=== PATIENT | male | born 1970 | race Caucasian/White ===

== ENCOUNTER 2016-05-21 13:23 | Emergency (ER) | payer OTHER ==
[~2016-05-21] VITALS: Ht 182.9 cm; Wt 79.0 kg
[2016-05-21 13:47] VITALS: TEMP 36.7; Ht 182.9 cm; Wt 79.0 kg
[2016-05-21] MEDS ORDERED: XYLOCAINE 1%/SOD BICARB 20 ML VIAL INFIL ONE (14:03)
--- NOTE | 2016-05-21 14:14 | EMERGENCY ROOM VISIT NOTE ---
ED Visit Note First contact with patient: 13:45 CHIEF COMPLAINT: Left hand laceration HISTORY OF PRESENT ILLNESS: This 45-year-old male patient presents to the emergency department ambulatory after cutting the left palm. The bleeding has stopped. Denies weakness or numbness of the fingers. The patient denies any pain. The patient denies any other injuries. The patient's Tetanus shot is probably up to date but he was unable to verify this. The patient states that he was changing a nail block from his nail gun and pushed the block up but one nail had come out and caused a 4cm laceration to the palm of his left hand. He was seen at urgent care and referred to the emergency department. REVIEW OF SYSTEMS: A 6 system review of systems was completed with positives and pertinent negatives listed in the HPI. ALLERGIES: No known drug allergies MEDICATIONS: None PMH: none SOCIAL HISTORY: The patient is employed and lives locally. PHYSICAL EXAM: Vital Signs: Reviewed Nurse's notes, vital signs stable. GENERAL : This is a 45-year-old male, in no acute distress, well-developed, well- nourished. SKIN: There is a 4 cm long laceration on the palmar aspect of the left hand. The edges gape apart with traction. There is no foreign material in the wound and it looks clean. There is minimal bleeding. No deep structures such as tendons, bones, or nerves are seen in the base of the wound. Normal strength and movement of the fingers. Capillary refill less than 2 seconds. Normal sensation to light and sharp touch. EMERGENCY DEPARTMENT COURSE: I examined the patient. An x-ray of the left hand was obtained and reviewed by radiology and myself. There is no obvious bony abnormality or foreign body. The patient has a laceration to the left hand. He is neurologically intact. He has good strength and range of motion of the hand and all fingers. I did not visualize any obvious tendon involvement on inspection. Using sterile technique the wound was cleaned with Betadine. The area was sterilely draped. 4 ml of 1% buffered lidocaine was used to anesthetize the laceration on the left hand. Once the patient was numb, the wound was copiously irrigated under pressure with 1L sterile saline using the [employer] lavage. The wound was explored and there is no obvious tendon involvement. The laceration was repaired using 8 simple interrupted 5-0 nylon sutures with the wound edges being well approximated. The patient tolerated the procedure well. The bleeding stopped. The area was cleaned with sterile saline and dressed with bacitracin ointment and bandage. The patient was given Td immunization. The patient will be placed on Keflex for 5 days to help prevent infection He was placed in a removable thumb spica splint to help limit movement while he is up and about and particularly at work. He declined a note for work. He should follow up with Dr. Perdomo with any numbness, tingling, weakness, decreased movement of the hand or fingers. Otherwise, he should have the sutures removed in 10-12 days. The patient was discharged home in good condition. Current/Historical Medications Scheduled Cephalexin Monohydrate (Keflex), 500 MG PO TID Allergies Coded Allergies: No Known Allergies (Unverified , 05/21/16) Vital Signs Date Time Temp Pulse Resp B/P Pulse Ox O2 Delivery O2 Flow Rate FiO2 05/21/16 16:09 62 18 128/89 96 Room Air 05/21/16 13:47 36.7 66 16 136/68 100 Room Air Medications Administered Medications (Trade) Dose Ordered Sig/Noam Route Start Time Stop Time Status Last Admin Dose Admin Diphtheria/ Pertussis/Tetanus Vacc (Adacel Inj) 0.5 ml ONCE ONCE IM. 05/21/16 16:00 05/21/16 16:01 DC 05/21/16 16:08 0.5 ML Departure Information Impression Primary Impression: Hand laceration Dispostion Home / Self-Care Condition GOOD Prescriptions Cephalexin Monohydrate (Keflex) 500 Mg Cap 500 MG PO TID for 5 Days, #15 CAP Prov: Angela Bates PA-C 05/21/16 Referrals Fazal Hdez M.D. (PCP) Emil Perdomo MD Patient Instructions ED Laceration All, My [facility] Additional Instructions Keep wound clean and dry. Do not allow any crusting or dried blood to accumulate on sutures. If this occurs, use a 1:1 solution of hydrogen peroxide/ water on a Q-tip to clean the wound. Use an antibiotic ointment for 3-4 days, then let wound dry. Suture removal in 10-12 days. Return sooner for any signs of infection (increasing redness, swelling, drainage). Ice and elevate for swelling and pain. Ibuprofen 600 mg and Tylenol 1000 mg every 6 hrs for pain. No more than 4 g of Tylenol in 24 hours. Keep covered when in sun until sutures removed then SPF 50 or higher for one year. Vitamin E oil if desired two weeks after suture removal for reduction of scar. Keflex as prescribed to help prevent infection Wear the splint when up and about Follow-up with Dr. Perdomo with any severe pain, persistent numbness, decreased strength or range of motion in the fingers or hand Problem Qualifiers Primary Impression: Hand laceration Encounter type: initial encounter Laterality: left Qualified Codes: S61.412A - Laceration without foreign body of left hand, initial encounter
--- NOTE | 2016-05-21 14:32 | DIAGNOSTIC IMAGING REPORT ---
LEFT HAND 3 VIEWS HISTORY: left hand laceration COMPARISON: None. FINDINGS: There is no fracture or dislocation. Soft tissue laceration at the palmar aspect of the hand. No radiopaque foreign bodies. IMPRESSION: No fractures. Soft tissue laceration at the palm. Electronically signed by: Toni Naik M.D. 05/21/2016 2:31 PM Dictated Date/Time: 05/21/2016 2:30 PM
[2016-05-21] MEDS ORDERED: CEPH500C PO (15:48)
[2016-05-21] MEDS ORDERED: DIPHTHERIA/TETANUS/PERTUSSIS 0.5 ML SYR/VIAL IM. ONE (16:00)
[2016-05-21 16:09] VITALS: BP 128/89; PULSE 62; O2SAT 96
== END 2016-05-21 16:10 | disposition home or self-care (01) ==
LOC: C.EDB 13:26 → C.EDD 16:10
DX: S61.412A Laceration without foreign body of left hand, initial encounter (principal); W45.8XXA Other foreign body or object entering through skin, initial encounter; Z23 Encounter for immunization

== ENCOUNTER 2016-05-31 18:20 | Emergency (ER) | payer OTHER ==
[~2016-05-31] VITALS: Ht 182.9 cm; Wt 80.6 kg
[2016-05-31 18:28] VITALS: BP 151/97; PULSE 57; TEMP 36.8; O2SAT 98; Ht 182.9 cm; Wt 80.6 kg
--- NOTE | 2016-05-31 18:42 | EMERGENCY ROOM VISIT NOTE ---
ED Visit Note First contact with patient: 18:33 CHIEF COMPLAINT: Suture removal HISTORY OF PRESENT ILLNESS: This 45-year-old patient returns to the ED today for removal of sutures that were placed 10 days ago. There has been no swelling , redness, or drainage from the wound. The patient feels like the laceration is healing well. REVIEW OF SYSTEMS: A 6 system review of systems was completed with positives and pertinent negatives listed in the HPI. PMH: Unchanged from previous visit. ALLERGIES: None PHYSICAL EXAM: Vital Signs: Reviewed Nurse's notes, vital signs stable. GENERAL : Pleasant male, in no acute distress. SKIN: There is a sutured wound on the left palm with no signs of infection. There is no erythema, swelling, or tenderness. EMERGENCY DEPARTMENT COURSE: The laceration was not fully healed and patient was advised to come back in 4 days for suture removal. There still was some separation of the wound edges. He was advised to keep the area dry and clean and covered while at work. The patient was discharged home in good condition. DIAGNOSIS: Healing laceration and wound recheck DISCHARGE INSTRUCTIONS AND TREATMENT: As below Allergies Coded Allergies: No Known Allergies (Unverified , 05/21/16) Vital Signs Date Time Temp Pulse Resp B/P Pulse Ox O2 Delivery O2 Flow Rate FiO2 05/31/16 18:28 36.8 57 18 151/97 98 Room Air Departure Information Referrals Fazal Hdez M.D. (PCP) Patient Instructions My [facility]
== END 2016-05-31 18:45 | disposition home or self-care (01) ==
LOC: C.EDB 18:21 → C.EDD 18:45
DX: Z48.02 Encounter for removal of sutures (principal)

== ENCOUNTER 2016-06-05 16:45 | Emergency (ER) | payer OTHER ==
[~2016-06-05] VITALS: Ht 182.9 cm; Wt 79.0 kg
[2016-06-05 16:46] VITALS: BP 137/88; PULSE 68; TEMP 36.7; O2SAT 98; Ht 182.9 cm; Wt 79.0 kg
[2016-06-05] MEDS ORDERED: MULT-600 PO (17:10)
--- NOTE | 2016-06-05 17:22 | EMERGENCY ROOM VISIT NOTE ---
ED Visit Note First contact with patient: 16:49 CHIEF COMPLAINT: Suture removal HISTORY OF PRESENT ILLNESS: This 45-year-old male patient returns to the ED today for removal of sutures that were placed 17 days ago. There has been no swelling, redness, or drainage from the wound. There was some dehiscence of the wound after 2 sutures are removed 5 days ago and he was advised to come. REVIEW OF SYSTEMS: A 6 system review of systems was completed with positives and pertinent negatives listed in the HPI. PMH: Unchanged from previous visit. ALLERGIES: No known drug allergies PHYSICAL EXAM: Vital Signs: Reviewed Nurse's notes, vital signs stable. GENERAL : This is a 45-year-old male, in no acute distress. SKIN: There is a sutured wound on the left hand with no signs of infection. There is no erythema, swelling, or tenderness. EMERGENCY DEPARTMENT COURSE: The remaining sutures were removed without any difficulty and there was slight dehiscence of the wound edges closest to the thumb. The skin beneath seems to be healed. The area was cleaned and Steri- Strips were placed after benzoin. The patient should contact orthopedics to schedule a follow-up appointment. He should return with any worsening symptoms. He was placed in a metal splint that included the second and third fingers. The patient had been wearing a splint while at work only. The patient was discharged home in good condition. DIAGNOSIS: Healing laceration and suture removal DISCHARGE INSTRUCTIONS AND TREATMENT: Wear the splint until seen by orthopedics. Leave the Steri-Strips in place. Contact orthopedics first thing in the morning to schedule a follow-up appointment for further evaluation and management. Return with any redness, swelling, warmth, drainage. Current/Historical Medications Scheduled Multiple Vitamins W/ Minerals (Mens Multi Vitamin & Mine), 1 TAB PO DAILY Allergies Coded Allergies: No Known Allergies (Unverified , 05/21/16) Vital Signs Date Time Temp Pulse Resp B/P Pulse Ox O2 Delivery O2 Flow Rate FiO2 06/05/16 16:46 36.7 68 16 137/88 98 Room Air Departure Information Impression Primary Impression: Encounter for removal of sutures Dispostion Home / Self-Care Condition GOOD Referrals Fazal Hdez M.D. (PCP) Emil Perdomo MD Patient Instructions My [facility] Additional Instructions Wear the splint until seen by orthopedics. Leave the Steri-Strips in place. Contact orthopedics first thing in the morning to schedule a follow-up appointment for further evaluation and management. Return with any redness, swelling, warmth, drainage.
== END 2016-06-05 17:15 | disposition home or self-care (01) ==
LOC: C.EDB 16:45 → C.EDD 17:15
DX: Z48.02 Encounter for removal of sutures (principal)

== ENCOUNTER 2017-10-06 07:13 | Emergency (ER) | payer OTHER ==
[~2017-10-06] VITALS: Ht 182.9 cm; Wt 77.1 kg
[~2017-10-06 07:13] MED LIST: MULT-600 PO
[2017-10-06 07:18] VITALS: TEMP 36.4; Ht 182.9 cm; Wt 77.1 kg
[2017-10-06] MEDS ORDERED: KETOROLAC TROMETHAMINE 30 MG/ML VIAL IV STA (07:27)
[2017-10-06] MEDS ORDERED: ONDANSETRON INJ 2 MG/ML 2 ML VIAL IV STA (07:27)
[2017-10-06] MEDS ORDERED: SODIUM CHLORIDE 0.9% 1000ML 1,000 ML IV STA (07:27)
--- NOTE | 2017-10-06 07:44 | EMERGENCY ROOM VISIT NOTE ---
History Report prepared by Shaina: Vinay Duckworth Under the Supervision of: Dr. David Chambers M.D. First contact with patient: 07:21 Chief Complaint: FLANK PAIN Stated Complaint: PAIN, VOMITING, BLOOD IN URINE History of Present Illness The patient is a 47 year old male who presents to the Emergency Room with complaints of intermittent left sided flank pain that began this morning at 0100 , 6.5 hours ago. The patient states that his pain woke him up from sleep this morning. He describes the pain as a "sharp" sensation that "comes and goes." The doug does radiate into the left lower abdominal quadrant. The last onset of the pain occurred at 0615, 1 hour ago. This episode lasted 15 minutes. The patient adds that he has vomited this morning as well. There was no hematemesis or coffee ground emesis. He has noticed some blood in his urine, which he describes as a "brownish-red" color. The patient denies any penile discharge or hematochezia. He denies any history of kidney stone or recent strenuous/ physical activity. Source of History: patient Onset: 6.5 Position: back (Left flank) Quality: sharp Timing: intermittent ("comes and goes") Associated Symptoms: + vomiting, + abdominal pain, + urinary symptoms ( "brownish-red" color), No melena, No hematochezia Review of Systems See HPI for pertinent positives and negatives. A total of ten systems were reviewed and were otherwise negative. Past Medical & Surgical No past medical or surgical history. No history of kidney. Social History Smoking Status: Never Smoker Marital Status: Housing Status: lives with significant other Current/Historical Medications Scheduled Multiple Vitamins W/ Minerals (Mens Multi Vitamin & Mine), 1 TAB PO DAILY Ondasetron Odt (Zofran Odt), 4 MG SL TID Tamsulosin Hcl (Flomax), 0.4 MG PO DAILY Scheduled PRN Ibuprofen Tab (Motrin), 800 MG PO Q8H PRN for Pain Allergies Coded Allergies: No Known Allergies (Unverified , 10/06/17) Physical Exam Vital Signs Date Time Temp Pulse Resp B/P (MAP) Pulse Ox O2 Delivery O2 Flow Rate FiO2 10/06/17 09:39 75 18 125/78 99 Room Air 10/06/17 08:17 79 18 131/77 99 Room Air 10/06/17 07:18 36.4 82 28 100 Room Air Physical Exam Physical Exam GENERAL: He is oriented to person, place, and time. He appears well-developed and well-nourished. He does not appear distressed. HENT: Exam performed. Head: Normocephalic and atraumatic. Right Ear: External ear normal. No mastoid tenderness. Left Ear: External ear normal. No mastoid tenderness. Mouth/Throat: The oropharynx is clear and moist. No trismus in the jaw. No dental abscesses or uvula swelling. No oropharyngeal exudate or tonsillar abscesses. EYES: Conjunctivae and EOM are normal. Pupils are equal, round, and reactive to light. Right eye exhibits no discharge. Left eye exhibits no discharge. No scleral icterus. NECK: Normal range of motion. Neck supple. No JVD present. No spinous process tenderness present. No carotid bruit present. No rigidity. No tracheal deviation and normal range of motion present. No Brudzinski's sign and no Kernig 's sign noted. CV: Normal rate, regular rhythm, normal heart sounds and intact distal pulses. There is no peripheral edema. Palpable radial pulses bue. PULM/CHEST: Effort normal and breath sounds normal. No respiratory distress. No stridor. He has no wheezes. He has no rales. Chest Wall: He exhibits no tenderness. ABD: The abdomen is soft. Bowel sounds are normal. He has no distension. No mass is present. There is no tenderness. There is no rebound, no guarding, no Duke's sign and no tenderness at McBurney's point. Rovsig negative. MUSC/SKEL: Positive left sided CVA tenderness. Normal range of motion. There is no peripheral edema, tenderness or deformity. LYMPH: No cervical adenopathy. NEURO: He is alert and oriented to person, place, and time. He has normal strength. No cranial nerve deficit or sensory deficit. Coordination and gait normal. GCS eye subscore is 4. GCS verbal subscore is 5. GCS motor subscore is 6. Cerebellar tests wnl. SKIN: Skin is warm and dry. He is not diaphoretic. PSYCH: He has a normal mood and affect. Behavior is normal. Judgment and thought content normal. Medical Decision & Procedures ER Provider Diagnostic Interpretation: Radiology results as stated below per my review and radiologist interpretation: CT OF THE ABDOMEN AND PELVIS WITHOUT CONTRAST CLINICAL HISTORY: Left flank pain and hematuria. COMPARISON STUDY: No previous studies for comparison. TECHNIQUE: Axial images of the abdomen and pelvis were obtained without IV contrast. Images were reviewed in the axial, sagittal, and coronal planes. A dose lowering technique was utilized adhering to the principles of ALARA. FINDINGS: Lung bases are clear. A 4 mm proximal left ureteral calculus results in mild left hydronephrosis with minimal perinephric infiltration. No additional urinary calculi are identified. Evaluation of the remainder of the abdomen and pelvis is suboptimal on this unenhanced exam. Unenhanced images of the liver, spleen, adrenal glands and pancreas are normal. There is no evidence for a bowel obstruction. No ascites or lymphadenopathy is present. A few prosthetic calcifications are present. There are no suspicious osseous lesions. No biliary or pancreatic ductal dilatation is noted. IMPRESSION: 4 mm proximal left ureteral calculus which results in mild left hydronephrosis and minimal perinephric infiltration. Electronically signed by: Josiah Vera M.D. 10/06/2017 8:21 AM Dictated Date/Time: 10/06/2017 8:16 AM Laboratory Results 10/06/17 07:55 Red Blood Count 5.31, Mean Corpuscular Volume 86.3, Mean Corpuscular Hemoglobin 29.9, Mean Corpuscular Hemoglobin Concent 34.7, Mean Platelet Volume 9.0, Neutrophils (%) (Auto) 89.1, Lymphocytes (%) (Auto) 6.4, Monocytes (%) (Auto) 3.8, Eosinophils (%) (Auto) 0.1, Basophils (%) (Auto) 0.4, Neutrophils # (Auto) 9.27, Lymphocytes # (Auto) 0.67, Monocytes # (Auto) 0.39, Eosinophils # (Auto) 0.01, Basophils # (Auto) 0.04 10/06/17 07:55 Test 10/06/17 07:55 10/06/17 09:10 White Blood Count 10.40 K/uL (4.8-10.8) Red Blood Count 5.31 M/uL (4.7-6.1) Hemoglobin 15.9 g/dL (14.0-18.0) Hematocrit 45.8 % (42-52) Mean Corpuscular Volume 86.3 fL (80-100) Mean Corpuscular Hemoglobin 29.9 pg (25-34) Mean Corpuscular Hemoglobin Concent 34.7 g/dl (32-36) Platelet Count 225 K/uL (130-400) Mean Platelet Volume 9.0 fL (7.4-10.4) Neutrophils (%) (Auto) 89.1 % Lymphocytes (%) (Auto) 6.4 % Monocytes (%) (Auto) 3.8 % Eosinophils (%) (Auto) 0.1 % Basophils (%) (Auto) 0.4 % Neutrophils # (Auto) 9.27 K/uL (1.4-6.5) Lymphocytes # (Auto) 0.67 K/uL (1.2-3.4) Monocytes # (Auto) 0.39 K/uL (0.11-0.59) Eosinophils # (Auto) 0.01 K/uL (0-0.5) Basophils # (Auto) 0.04 K/uL (0-0.2) RDW Standard Deviation 40.7 fL (36.4-46.3) RDW Coefficient of Variation 12.8 % (11.5-14.5) Immature Granulocyte % (Auto) 0.2 % Immature Granulocyte # (Auto) 0.02 K/uL (0.00-0.02) Anion Gap 9.0 mmol/L (3-11) Est Creatinine Clear Calc Drug Dose 83.5 ml/min Estimated GFR () 84.1 Estimated GFR (Non- 72.5 BUN/Creatinine Ratio 15.6 (10-20) Calcium Level 9.0 mg/dl (8.5-10.1) Total Bilirubin 0.7 mg/dl (0.2-1) Direct Bilirubin 0.2 mg/dl (0-0.2) Aspartate Amino Transf (AST/SGOT) 27 U/L (15-37) Alanine Aminotransferase (ALT/SGPT) 37 U/L (12-78) Alkaline Phosphatase 65 U/L (45-117) Total Protein 7.4 gm/dl (6.4-8.2) Albumin 3.8 gm/dl (3.4-5.0) Lipase 85 U/L (73-393) Urine Color TIGIST Urine Appearance CLOUDY (CLEAR) Urine pH >= 9.0 (4.5-7.5) Urine Specific [place] 1.021 (1.000-1.030) Urine Protein NEG (NEG) Urine Glucose (UA) NEG (NEG) Urine Ketones 1+ (NEG) Urine Occult Blood 3+ (NEG) Urine Nitrite NEG (NEG) Urine Bilirubin NEG (NEG) Urine Urobilinogen NEG (NEG) Urine Leukocyte Esterase TRACE (NEG) Urine WBC (Auto) 1-5 /hpf (0-5) Urine RBC (Auto) >30 /hpf (0-4) Urine Hyaline Casts (Auto) 1-5 /lpf (0-5) Urine Epithelial Cells (Auto) 10-20 /lpf (0-5) Urine Bacteria (Auto) NEG (NEG) Laboratory results reviewed by me Medications Administered Medications (Trade) Dose Ordered Sig/Noam Route Start Time Stop Time Status Last Admin Dose Admin Sodium Chloride 1,000 ml @ 999 mls/hr Q1H1M STAT IV 10/06/17 07:27 10/06/17 08:27 DC 10/06/17 07:52 999 MLS/HR Ketorolac Tromethamine (Toradol Inj) 15 mg NOW STAT IV 10/06/17 07:27 10/06/17 07:29 DC 10/06/17 07:53 15 MG Ondansetron HCl (Zofran Inj) 4 mg NOW STAT IV 10/06/17 07:27 10/06/17 07:29 DC 10/06/17 07:52 4 MG ED Course 0723: The patient was evaluated in room B6. A complete history and physical exam was performed. 0727: Ordered Zofran 4 mg IV, Toradol 15 mg IV, Sodium Chloride 1000 mL @ 999 mL /hr IV. 0933: Vitals are stable, labs are within normal limits. Patient states he feels much better status post Toradol and Zofran. The urine sample is contaminated but there is no concerning signs of infection. There is a left sided 4 mm kidney stone with mild hydronephrosis. The patient will be discharged with follow-up PCP and urology. Will be discharged with FloMax and analgesia, will be encouraged to stay hydrated. DISCHARGE - Plan of care discussed with patient and questions answered. The patient was given both verbal and printed discharge instructions. The patient verbalized understanding and ability to comply. The patient is to seek outpatient follow up as noted in the discharge instructions. The patient verbalized understanding and ability to comply. The patient is discharged in stable condition. The patient was instructed to return for worsening symptoms. Medical Decision Vitals are stable, labs are within normal limits. Patient states he feels much better status post Toradol and Zofran. The urine sample is contaminated but there is no concerning signs of infection. There is a left sided 4 mm kidney stone with mild hydronephrosis. The patient will be discharged with follow-up PCP and urology. Will be discharged with FloMax and analgesia, will be encouraged to stay hydrated. DISCHARGE - Plan of care discussed with patient and questions answered. The patient was given both verbal and printed discharge instructions. The patient verbalized understanding and ability to comply. The patient is to seek outpatient follow up as noted in the discharge instructions. The patient verbalized understanding and ability to comply. The patient is discharged in stable condition. The patient was instructed to return for worsening symptoms. Medication Reconcilliation Current Medication List: was personally reviewed by me Blood Pressure Screening Patient's blood pressure: Normal blood pressure Impression Primary Impression: Kidney stones Scribe Attestation The scribe's documentation has been prepared under my direction and personally reviewed by me in its entirety. I confirm that the note above accurately reflects all work, treatment, procedures, and medical decision making performed by me. The chart was completed utilizing [employer] Speech voice recognition software. Grammatical errors, random word insertions, pronoun errors, and incomplete sentences are an occasional consequence of this system due to software limitations, ambient noise, and hardware issues. Any formal questions or concerns about the content, text, or information contained within the body of this dictation should be directly addressed to the physician for clarification. Departure Information Dispostion Home / Self-Care Prescriptions Ondasetron Odt (ZOFRAN ODT) 4 Mg Tab 4 MG SL TID for Nausea, #30 TAB Prov: David Chambers M.D. 10/06/17 Ibuprofen Tab (MOTRIN) 800 Mg Tab 800 MG PO Q8H Y for Pain, #30 TAB Prov: David Chambers M.D. 10/06/17 Tamsulosin Hcl (FLOMAX) 0.4 Mg Cap 0.4 MG PO DAILY, #10 CAP Prov: David Chambers M.D. 10/06/17 Referrals Fazal Hdez M.D. (PCP) Patient Instructions My [facility]
[2017-10-06 08:03] LABS: BASO % 0.4 %; BASO ABS # 0.04 K/uL (0-0.2); EOS % 0.1 %; EOS ABS # 0.01 K/uL (0-0.5); HEMATOCRIT 45.8 % (42-52); HEMOGLOBIN 15.9 g/dL (14.0-18.0); IG# 0.02 K/uL (0.00-0.02); LYMPH % 6.4 %; LYMPH ABS # 0.67 K/uL (1.2-3.4); MEAN CELL VOLUME 86.3 fL (80-100); MEAN CORPUSCULAR HEMOGLOBIN 29.9 pg (25-34); MEAN CORPUSCULAR HGB CONC 34.7 g/dl (32-36); MONO % 3.8 %; MONO ABS # 0.39 K/uL (0.11-0.59); NEUT % 89.1 %; NEUT ABS # 9.27 K/uL (1.4-6.5); PLATELET COUNT 225 K/uL (130-400); RED CELL DISTRIBUTION WIDTH CV 12.8 % (11.5-14.5); RED CELL DISTRIBUTION WIDTH SD 40.7 fL (36.4-46.3)
--- NOTE | 2017-10-06 08:22 | DIAGNOSTIC IMAGING REPORT ---
CT OF THE ABDOMEN AND PELVIS WITHOUT CONTRAST CLINICAL HISTORY: Left flank pain and hematuria. COMPARISON STUDY: No previous studies for comparison. TECHNIQUE: Axial images of the abdomen and pelvis were obtained without IV contrast. Images were reviewed in the axial, sagittal, and coronal planes. A dose lowering technique was utilized adhering to the principles of ALARA. FINDINGS: Lung bases are clear. A 4 mm proximal left ureteral calculus results in mild left hydronephrosis with minimal perinephric infiltration. No additional urinary calculi are identified. Evaluation of the remainder of the abdomen and pelvis is suboptimal on this unenhanced exam. Unenhanced images of the liver, spleen, adrenal glands and pancreas are normal. There is no evidence for a bowel obstruction. No ascites or lymphadenopathy is present. A few prosthetic calcifications are present. There are no suspicious osseous lesions. No biliary or pancreatic ductal dilatation is noted. IMPRESSION: 4 mm proximal left ureteral calculus which results in mild left hydronephrosis and minimal perinephric infiltration. Electronically signed by: Josiah Vera M.D. 10/06/2017 8:21 AM Dictated Date/Time: 10/06/2017 8:16 AM
[2017-10-06 08:31] LABS: ALBUMIN 3.8 gm/dl (3.4-5.0); CREATININE 1.18 mg/dl (0.60-1.40); POTASSIUM 3.8 mmol/L (3.5-5.1); TOTAL PROTEIN 7.4 gm/dl (6.4-8.2)
[2017-10-06] MEDS ORDERED: TAMS0.4C38 PO (09:34)
[2017-10-06] MEDS ORDERED: IBUP-1451 PO (09:35)
[2017-10-06] MEDS ORDERED: ONDA4TAB10 SL (09:35)
[2017-10-06 09:39] VITALS: BP 125/78; PULSE 75; O2SAT 99
[2017-10-10] MEDS ORDERED: HYDR-5688 PO (10:53)
== END 2017-10-06 09:53 | disposition home or self-care (01) ==
LOC: C.EDB 07:13
DX: N20.0 Calculus of kidney (principal); R10.9 Unspecified abdominal pain; R31.9 Hematuria, unspecified; R11.10 Vomiting, unspecified

== ENCOUNTER 2017-10-08 08:20 | Inpatient (IN) | payer OTHER ==
[~2017-10-08] VITALS: Ht 182.9 cm; Wt 79.5 kg
[~2017-10-08 08:20] MED LIST changes: +IBUP-1451 PO; -MULT-600 PO; +ONDA4TAB10 SL; +TAMS0.4C38 PO
[2017-10-08] MEDS ORDERED: SODIUM CHLORIDE 0.9% 1000ML 1,000 ML IV STA (08:33)
[2017-10-08] MEDS ORDERED: MoRPHine SULFATE 4 MG/ML 1 ML CARP\\VIAL IV STA (08:33)
[2017-10-08] MEDS ORDERED: KETOROLAC TROMETHAMINE 30 MG/ML VIAL IV STA (08:33)
[2017-10-08] MEDS ORDERED: METOCLOPRAMIDE HCL INJ 5 MG/ML 2 ML VIAL IV STA (08:48)
--- NOTE | 2017-10-08 09:04 | EMERGENCY ROOM VISIT NOTE ---
History First contact with patient: 08:27 Chief Complaint: KIDNEY STONE Stated Complaint: KIDNEY STONE History of Present Illness The patient is a 47 year old male who presents to the Emergency Room via private vehicle accompanied by with complaints of "kidney stone". The patient notes that he was seen here today and diagnosed with a kidney stone. He has been tolerating this at home well over the past 16 hours he notes he has had excruciating pain. He states that now he feels chilled, he feels that the stone is stuck in his pain as a 6/10. He is taking all prescribed medication as indicated without relief. He denies any fevers. He states that since 8 PM last night the pain has been excruciating. Review of Systems A complete 10-point Review of Systems was discussed with the patient, with pertinent positives and negatives listed in the History of Present Illness. All remaining Review of Systems questions can be considered negative unless otherwise specified. Past Medical/Surgical History Medical Problems: (1) Kidney stone Obstructing calculus Family History No pertinent Social History Smoking Status: Never Smoker Marital Status: Housing Status: lives with significant other Current/Historical Medications Scheduled Multiple Vitamins W/ Minerals (Mens Multi Vitamin & Mine), 1 TAB PO DAILY Ondasetron Odt (Zofran Odt), 4 MG SL TID Tamsulosin Hcl (Flomax), 0.4 MG PO DAILY Scheduled PRN Ibuprofen Tab (Motrin), 800 MG PO Q8H PRN for Pain Physical Exam Vital Signs Date Time Temp Pulse Resp B/P (MAP) Pulse Ox O2 Delivery O2 Flow Rate FiO2 10/08/17 11:16 95 Room Air 10/08/17 10:23 69 20 119/76 95 10/08/17 09:37 72 20 121/77 100 Room Air 10/08/17 08:24 36.6 76 20 151/96 99 Room Air Physical Exam VITAL SIGNS - Vital signs and nursing notes were reviewed. Stable. Afebrile. GENERAL -47-year-old male appearing his stated age who is in no acute distress. Communicates well with provider and answers questions appropriately. SKIN - Without rashes. No meningeal or petechial rash. HEAD - NC/AT. EYES - PERRL with EOMI bilaterally. Sclera anicteric. EARS - No deformities of external structures noted on gross examination bilaterally. NOSE - Midline and without cyanosis. No epistaxis or purulent drainage noted. MOUTH/OROPHARYNX - Without perioral cyanosis. LUNGS - Chest wall symmetric without accessory muscle use, intercostals retractions, or central cyanosis. Normal vesicular breath sounds CTA B/L. No wheezes, rales, or rhonchi appreciated. CARDIAC - RRR with S1/S2. No murmur, rubs, or gallops appreciated. ABDOMEN - Abdominal contour normal without pulsations or visible masses. BS normoactive all four quadrants. No tenderness, palpable masses, hepatosplenomegaly, or ascites noted. Left -sided CVA tenderness noted. EXTREMITIES - No clubbing or peripheral cyanosis. No pretibial edema present. + 5/5 strength noted in UE/LE bilaterally. NEUROLOGIC - Cranial nerves II through XII grossly intact. Sensory intact to light touch throughout. PSYCH - A&Ox3 and cooperates fully with examiner. Pt is very pleasant and interacts well with examiner. Medical Decision & Procedures ER Provider Diagnostic Interpretation: (JOVAN/BLAD)RETROPERITON COMP HISTORY: 47 years-old Male L flank pain acute left-sided flank pain COMPARISON: KUB of same day, CT abdomen and pelvis 10/06/2017 TECHNIQUE: Multiple real-time sonogram images of the kidneys and bladder were obtained assessing grayscale appearance and color flow FINDINGS: The right kidney measures 11.6 cm in length and is unremarkable without renal calculi, hydronephrosis or suspicious mass lesion. There is persistent mild left-sided hydronephrosis. Left kidney measures 11.7 cm in length. No left-sided renal calculi or suspicious mass lesions. There is an ovoid cystic structure within the region of the left ureterovesicular junction suggesting possible ureterocele, 1.4 x 1.3 x 1.2 cm. Enlarged prostate. Right ureteral jet noted. The left renal jet is not identified. IMPRESSION: 1. Persistent left-sided hydronephrosis with left ureteral jet not identified. These findings are suspicious for ongoing obstruction secondary to the previously described left ureteral calculus seen on recent CT study. 2. 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 within the region of the left ureterovesicular junction. The above report was generated using voice recognition software. It may contain grammatical, syntax or spelling errors. Electronically signed by: Nitin Cole M.D. 10/08/2017 10:23 AM Dictated Date/Time: 10/08/2017 10:20 AM Laboratory Results 10/08/17 08:45 Red Blood Count 4.97, Mean Corpuscular Volume 87.5, Mean Corpuscular Hemoglobin 29.8, Mean Corpuscular Hemoglobin Concent 34.0, Mean Platelet Volume 9.1, Neutrophils (%) (Auto) 83.9, Lymphocytes (%) (Auto) 7.3, Monocytes (%) (Auto) 7.8, Eosinophils (%) (Auto) 0.4, Basophils (%) (Auto) 0.3, Neutrophils # (Auto) 9.99, Lymphocytes # (Auto) 0.87, Monocytes # (Auto) 0.93, Eosinophils # (Auto) 0.05, Basophils # (Auto) 0.03 10/08/17 08:45 Test 10/08/17 08:45 10/08/17 08:50 White Blood Count 11.90 K/uL (4.8-10.8) Red Blood Count 4.97 M/uL (4.7-6.1) Hemoglobin 14.8 g/dL (14.0-18.0) Hematocrit 43.5 % (42-52) Mean Corpuscular Volume 87.5 fL (80-100) Mean Corpuscular Hemoglobin 29.8 pg (25-34) Mean Corpuscular Hemoglobin Concent 34.0 g/dl (32-36) Platelet Count 206 K/uL (130-400) Mean Platelet Volume 9.1 fL (7.4-10.4) Neutrophils (%) (Auto) 83.9 % Lymphocytes (%) (Auto) 7.3 % Monocytes (%) (Auto) 7.8 % Eosinophils (%) (Auto) 0.4 % Basophils (%) (Auto) 0.3 % Neutrophils # (Auto) 9.99 K/uL (1.4-6.5) Lymphocytes # (Auto) 0.87 K/uL (1.2-3.4) Monocytes # (Auto) 0.93 K/uL (0.11-0.59) Eosinophils # (Auto) 0.05 K/uL (0-0.5) Basophils # (Auto) 0.03 K/uL (0-0.2) RDW Standard Deviation 41.5 fL (36.4-46.3) RDW Coefficient of Variation 12.9 % (11.5-14.5) Immature Granulocyte % (Auto) 0.3 % Immature Granulocyte # (Auto) 0.03 K/uL (0.00-0.02) Anion Gap 7.0 mmol/L (3-11) Est Creatinine Clear Calc Drug Dose 53.6 ml/min Estimated GFR () 48.8 Estimated GFR (Non- 42.1 BUN/Creatinine Ratio 7.9 (10-20) Calcium Level 9.1 mg/dl (8.5-10.1) Urine Color DK YELLOW Urine Appearance CLEAR (CLEAR) Urine pH 5.0 (4.5-7.5) Urine Specific [place] 1.029 (1.000-1.030) Urine Protein TRACE (NEG) Urine Glucose (UA) NEG (NEG) Urine Ketones TRACE (NEG) Urine Occult Blood NEG (NEG) Urine Nitrite NEG (NEG) Urine Bilirubin NEG (NEG) Urine Urobilinogen NEG (NEG) Urine Leukocyte Esterase NEG (NEG) Urine WBC (Auto) 1-5 /hpf (0-5) Urine RBC (Auto) 0-4 /hpf (0-4) Urine Hyaline Casts (Auto) 10-30 /lpf (0-5) Urine Epithelial Cells (Auto) >30 /lpf (0-5) Urine Bacteria (Auto) NEG (NEG) Medications Administered Medications (Trade) Dose Ordered Sig/Noam Route Start Time Stop Time Status Last Admin Dose Admin Sodium Chloride 1,000 ml @ 999 mls/hr Q1H1M STAT IV 10/08/17 08:33 10/08/17 09:33 DC 10/08/17 08:47 999 MLS/HR Ketorolac Tromethamine (Toradol Inj) 30 mg NOW STAT IV 10/08/17 08:33 10/08/17 08:36 DC 10/08/17 08:45 30 MG Morphine Sulfate (MoRPHine SULFATE INJ) 4 mg NOW STAT IV 10/08/17 08:33 10/08/17 08:36 DC 10/08/17 08:45 4 MG Metoclopramide HCl (Reglan Inj) 10 mg NOW STAT IV 10/08/17 08:48 10/08/17 08:49 DC 10/08/17 08:56 10 MG Medical Decision Patient was seen and evaluated as above in room B12. Review was performed of nursing notes and vital signs. After obtaining a thorough history and physical examination the above work up was performed. He presents to us today with a known kidney stone and persistent pain. He did appear to be in a great deal of pain. He was given pain medication, fluids. KUB and x-ray were obtained. Results as above. Persistent hydronephrosis noted. Benefit versus risk of inpatient versus outpatient management discussed with patient and he preferred to stay. I believe this is reasonable. Particularly given his level of pain, and order trying to pass the stone at home. I did discuss this with urologist, Dr. Parker. Patient is to be n.p.o. I also discussed this with the hospitalist, Dr. Garzon. In review of his blood work there is no concerning leukocytosis however there is now change in his creatinine. Urine does not reveal infection. In the evaluation and treatment of this patient the following differential diagnoses were entertained: Persistent hydronephrosis, renal calculi, UTI, among others. Impression Primary Impression: Left flank pain Additional Impressions: 4mm ureteral calculus Hydronephrosis Departure Information Dispostion Admitted as an inpatient Condition FAIR Referrals Fazal Hedz M.D. (PCP) Patient Instructions [facility] Problem Qualifiers
[2017-10-08 09:05] LABS: BASO % 0.3 %; BASO ABS # 0.03 K/uL (0-0.2); EOS % 0.4 %; EOS ABS # 0.05 K/uL (0-0.5); HEMATOCRIT 43.5 % (42-52); HEMOGLOBIN 14.8 g/dL (14.0-18.0); IG# 0.03 K/uL (0.00-0.02); LYMPH % 7.3 %; LYMPH ABS # 0.87 K/uL (1.2-3.4); MEAN CELL VOLUME 87.5 fL (80-100); MEAN CORPUSCULAR HEMOGLOBIN 29.8 pg (25-34); MEAN PLATELET VOLUME 9.1 fL (7.4-10.4); MONO % 7.8 %; MONO ABS # 0.93 K/uL (0.11-0.59); NEUT % 83.9 %; NEUT ABS # 9.99 K/uL (1.4-6.5); PLATELET COUNT 206 K/uL (130-400); RED CELL DISTRIBUTION WIDTH CV 12.9 % (11.5-14.5); RED CELL DISTRIBUTION WIDTH SD 41.5 fL (36.4-46.3)
[2017-10-08 09:09] LABS: CALCIUM 9.1 mg/dl (8.5-10.1); CREATININE 1.85 mg/dl (0.60-1.40); POTASSIUM 3.9 mmol/L (3.5-5.1)
--- NOTE | 2017-10-08 09:14 | DIAGNOSTIC IMAGING REPORT ---
KUB HISTORY: Acute left-sided flank pain L flank pain COMPARISON: CT abdomen and pelvis 10/06/2017 FINDINGS: The bowel gas pattern is non-obstructive. Gaseous distention of the large bowel with mild to moderate colonic stool volume. There is no organomegaly. The previously noted 4 mm calculus of the proximal left ureter is not definitively seen. The renal shadows are obscured by bowel gas. Suggested phleboliths about the pelvis. No pneumoperitoneum or pneumatosis. No fracture. IMPRESSION: 1. Gaseous distention of the colon with mild to moderate stool volume. 2. Nonobstructive bowel gas pattern. 3. Renal shadows are obscured by bowel gas. The previously described calculus of the proximal left ureter is not definitively seen. Electronically signed by: Nitin Cole M.D. 10/08/2017 9:13 AM Dictated Date/Time: 10/08/2017 9:10 AM
--- NOTE | 2017-10-08 10:25 | DIAGNOSTIC IMAGING REPORT ---
(JOVAN/BLAD)RETROPERITON COMP HISTORY: 47 years-old Male L flank pain acute left-sided flank pain COMPARISON: KUB of same day, CT abdomen and pelvis 10/06/2017 TECHNIQUE: Multiple real-time sonogram images of the kidneys and bladder were obtained assessing grayscale appearance and color flow FINDINGS: The right kidney measures 11.6 cm in length and is unremarkable without renal calculi, hydronephrosis or suspicious mass lesion. There is persistent mild left-sided hydronephrosis. Left kidney measures 11.7 cm in length. No left-sided renal calculi or suspicious mass lesions. There is an ovoid cystic structure within the region of the left ureterovesicular junction suggesting possible ureterocele, 1.4 x 1.3 x 1.2 cm. Enlarged prostate. Right ureteral jet noted. The left renal jet is not identified. IMPRESSION: 1. Persistent left-sided hydronephrosis with left ureteral jet not identified. These findings are suspicious for ongoing obstruction secondary to the previously described left ureteral calculus seen on recent CT study. 2. 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 within the region of the left ureterovesicular junction. The above report was generated using voice recognition software. It may contain grammatical, syntax or spelling errors. Electronically signed by: Nitin Cole M.D. 10/08/2017 10:23 AM Dictated Date/Time: 10/08/2017 10:20 AM
[2017-10-08 11:16] VITALS: O2SAT 95; Ht 182.9 cm; Wt 79.5 kg
[2017-10-08] MEDS ORDERED: MAGNESIUM HYDROXIDE SUSP 30 ML UDC PO PRN (11:30)
[2017-10-08] MEDS ORDERED: ACETAMINOPHEN 325 MG TAB PO PRN (11:30)
[2017-10-08] MEDS ORDERED: IBUPROFEN 800 MG TAB PO PRN (11:30)
[2017-10-08] MEDS ORDERED: MoRPHine SULFATE 2 MG/ML CARP IV PRN (11:30)
--- NOTE | 2017-10-08 11:50 | History and Physical ---
History & Physical Date & Time of Service: Oct 08, 2017 at 11:44 Chief Complaint: Kidney Stone Primary Care Physician: Fazal Hdez M.D. History of Present Illness Source: patient 47 y/o M c/o worsening kidney stone pain. Pt was seen in the ED on 10/06 and dx with a L sided 4mm renal stone. He was d/c'd to home with pain medication and flomax. He has continued to have pain that is worse. Pain is L flank and does move some to the L lateral area. He states it comes and goes in waves and is the same pain he was having on 10/06, but much more intense. He has had nausea without emesis. He has been tolerating PO but his appetite is low. He is still making urine in what he considers to be a usual amount and without pain on urination. His pain is improved s/p pain meds in the ED today. Pt denies fever, SOB, chest pain, c/d, LE pain or swelling. Pt has no prior hx of renal stones. He has not eaten today. Past Medical/Surgical History Denies PMH or current medications Family History Father: multiple recurrent TIA Social History Smoking Status: Never Smoker Alcohol Use: none Drug Use: none Marital Status: Allergies Coded Allergies: No Known Allergies (Unverified , 10/08/17) Home Medications Scheduled Multiple Vitamins W/ Minerals (Mens Multi Vitamin & Mine), 1 TAB PO DAILY Ondasetron Odt (Zofran Odt), 4 MG SL TID Tamsulosin Hcl (Flomax), 0.4 MG PO DAILY Scheduled PRN Ibuprofen Tab (Motrin), 800 MG PO Q8H PRN for Pain Review of Systems Pertinent positives and negatives reviewed in HPI--all others negative Physical Exam Vital Signs Date Time Temp Pulse Resp B/P (MAP) Pulse Ox O2 Delivery O2 Flow Rate FiO2 10/08/17 11:43 66 18 121/71 96 Room Air 10/08/17 11:16 95 Room Air 10/08/17 10:23 69 20 119/76 95 10/08/17 09:37 72 20 121/77 100 Room Air 10/08/17 08:24 36.6 76 20 151/96 99 Room Air General Appearance: WD/WN, no apparent distress Head: normocephalic, atraumatic Eyes: normal inspection, sclerae normal Respiratory/Chest: normal breath sounds, no respiratory distress Cardiovascular: regular rate, rhythm, no edema Abdomen/GI: non tender, soft Back: + left CVA tenderness Extremities/Musculoskelatal: no calf tenderness, no pedal edema Neurologic/Psych: alert, normal mood/affect, oriented x 3 Skin: normal color, warm/dry Diagnostics Laboratory Results Results Past 24 Hours Test 10/08/17 08:45 10/08/17 08:50 Range/Units White Blood Count 11.90 4.8-10.8 K/uL Red Blood Count 4.97 4.7-6.1 M/uL Hemoglobin 14.8 14.0-18.0 g/dL Hematocrit 43.5 42-52 % Mean Corpuscular Volume 87.5 80-100 fL Mean Corpuscular Hemoglobin 29.8 25-34 pg Mean Corpuscular Hemoglobin Concent 34.0 32-36 g/dl Platelet Count 206 130-400 K/uL Mean Platelet Volume 9.1 7.4-10.4 fL Neutrophils (%) (Auto) 83.9 % Lymphocytes (%) (Auto) 7.3 % Monocytes (%) (Auto) 7.8 % Eosinophils (%) (Auto) 0.4 % Basophils (%) (Auto) 0.3 % Neutrophils # (Auto) 9.99 1.4-6.5 K/uL Lymphocytes # (Auto) 0.87 1.2-3.4 K/uL Monocytes # (Auto) 0.93 0.11-0.59 K/uL Eosinophils # (Auto) 0.05 0-0.5 K/uL Basophils # (Auto) 0.03 0-0.2 K/uL RDW Standard Deviation 41.5 36.4-46.3 fL RDW Coefficient of Variation 12.9 11.5-14.5 % Immature Granulocyte % (Auto) 0.3 % Immature Granulocyte # (Auto) 0.03 0.00-0.02 K/uL Sodium Level 138 136-145 mmol/L Potassium Level 3.9 3.5-5.1 mmol/L Chloride Level 105 98-107 mmol/L Carbon Dioxide Level 26 21-32 mmol/L Anion Gap 7.0 3-11 mmol/L Blood Urea Nitrogen 15 7-18 mg/dl Creatinine 1.85 0.60-1.40 mg/dl Est Creatinine Clear Calc Drug Dose 53.6 ml/min Estimated GFR () 48.8 Estimated GFR (Non- 42.1 BUN/Creatinine Ratio 7.9 10-20 Random Glucose 133 70-99 mg/dl Calcium Level 9.1 8.5-10.1 mg/dl Urine Color DK YELLOW Urine Appearance CLEAR CLEAR Urine pH 5.0 4.5-7.5 Urine Specific [place] 1.029 1.000-1.030 Urine Protein TRACE NEG Urine Glucose (UA) NEG NEG Urine Ketones TRACE NEG Urine Occult Blood NEG NEG Urine Nitrite NEG NEG Urine Bilirubin NEG NEG Urine Urobilinogen NEG NEG Urine Leukocyte Esterase NEG NEG Urine WBC (Auto) 1-5 0-5 /hpf Urine RBC (Auto) 0-4 0-4 /hpf Urine Hyaline Casts (Auto) 10-30 0-5 /lpf Urine Epithelial Cells (Auto) >30 0-5 /lpf Urine Bacteria (Auto) NEG NEG Diagnostic Radiology KUB with gaseous pattern, no stone identified Retro US: 1. Persistent left-sided hydronephrosis with left ureteral jet not identified. These findings are suspicious for ongoing obstruction secondary to the previously described left ureteral calculus seen on recent CT study. 2. 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 within the region of the left ureterovesicular junction Normal EKG Impression Assessment and Plan 47 y/o M who was admitted on 10/08 with renal stone Renal stone: concern for obstruction noted on retro US despite stone not being visualized Seen on CTAP on 10/06 Pt with worsening sx despite home pain meds, flomax Continue IVF, flomax, morphine Elevated cr ED spoke with urology and they may be able to address this issue later today with OR given pt has not eaten today Urology c/s pending Other: Full code NPO SCDs for DVT proph Advanced Directives Existing Living Will: No Existing Power of Recordings Librarian: No Resuscitation Status VTE Prophylaxis Will order VTE Prophylaxis: Yes
[2017-10-08 12:00] VITALS: BP 134/80; PULSE 63; TEMP 36.5; O2SAT 96
[2017-10-08] MEDS: SODIUM CHLORIDE 0.9% 1000ML 1,000 ML IV SCH ×2 (13:17→18:58)
[2017-10-08] MEDS: ONDANSETRON 4MG OD TAB SL SCH ×2 (14:00→21:09)
[2017-10-08 15:35] VITALS: O2SAT 96
[2017-10-08 15:36] VITALS: BP 130/74; PULSE 77; TEMP 37.5; O2SAT 96
[2017-10-08] MEDS ORDERED: MIDAZOLAM HCL 1 MG/ML 2ML VIAL ONE (16:29)
[2017-10-08] MEDS ORDERED: LIDOCAINE HCL 2% 2 ML VIAL (20MG/ML) ONE (16:29)
[2017-10-08] MEDS ORDERED: FENTANYL CITRATE INJ 50 MCG/1 ML 2 ML VIAL ONE (16:29)
[2017-10-08] MEDS ORDERED: PROPOFOL IV EMULSION 10 MG/ML 20 ML VIAL ONE (16:29)
--- NOTE | 2017-10-08 16:30 | Urology Consultation ---
History General Date of Service: Oct 08, 2017. Primary Care Physician: Fazal Hdez M.D. Pt seen a urologist before?: Yes History of Present Illness 47y/o male w/ a small left ureteral stone - CT two days ago after sudden onset of severe left flank pain, nausea, vomiting - CT revealed a 4mm proximal/mid ureteral calc with mild hydro - attempted to try spontaneous passage at home, however, pain returned earlier today prompting a return to the ER - no stone passage yet - US with stable uretera/renal pelvis dilation - KUB - full of air in colon - unable to clearly identify the stone - since arrival, pain has resolved entirely - no further nausea - states he is hungry Imaging Imaging: CT, KUB, Ultrasound Laboratory Labs were reviewed and are within normal limits unless listed below. Labs are available in the chart and at [facility] Problem List Medical Problems: (1) Encounter for removal of sutures Status: Acute (2) Encounter for removal of sutures Status: Acute (3) Hand laceration Status: Acute (4) Kidney stones Status: Acute Past History no pertinent history Pt had a problem w anesthesia?: No Past Surgical History: no surgical history Social History Hx Tobacco Use In Past Year?: No Marital status: History of MDRO No Allergies Coded Allergies: No Known Allergies (Unverified , 10/08/17) Medications Home Medications: Home Meds and Scripts Medications Dose Route/Sig Max Daily Dose Days Date Category Zofran Odt (Ondansetron HCl) 4 Mg Tab 4 Mg SL TID 10/06/17 Rx Motrin (Ibuprofen) 800 Mg Tab 800 Mg PO Q8H PRN 10/06/17 Rx Flomax (Tamsulosin Hcl) 0.4 Mg Cap 0.4 Mg PO DAILY 10/06/17 Rx Mens Multi Vitamin & Mine (Multiple Vitamins W/ Minerals) 1 Tab Tab 1 Tab PO DAILY 06/05/16 Reported Inpatient Medications: Current Inpatient Medications Medications (Trade) Dose Ordered Sig/Noam Route Start Time Stop Time Status Last Admin Dose Admin Acetaminophen (Tylenol Tab) 650 mg Q4H PRN PO 10/08/17 11:30 11/07/17 11:29 Magnesium Hydroxide (Milk Of Magnesia Susp) 30 ml Q6H PRN PO 10/08/17 11:30 11/07/17 11:29 Ondansetron HCl (Zofran Inj) 4 mg Q6H PRN IV 10/08/17 11:30 11/07/17 11:29 Ibuprofen (Motrin Tab) 800 mg Q8H PRN PO 10/08/17 11:30 11/07/17 11:29 Multivitamins/ Minerals (Multivitamin W/ Minerals Tab) 1 tab DAILY PO 10/09/17 09:00 11/08/17 08:59 Ondansetron HCl (Zofran Odt) 4 mg TID SL 10/08/17 14:00 11/07/17 13:59 Tamsulosin HCl (Flomax Cap) 0.4 mg DAILY PO 10/09/17 09:00 11/08/17 08:59 Morphine Sulfate (MoRPHine SULFATE INJ) 1 mg Q4H PRN IV 10/08/17 11:30 10/22/17 11:29 Sodium Chloride 1,000 ml @ 150 mls/hr Q6H40M IV 10/08/17 11:30 11/07/17 11:29 10/08/17 13:17 150 MLS/HR Review of Systems Review of Systems Constitutional: No see HPI, No fever, No chills, No frequent headaches, No weight loss, No problem reported Eyes: No see HPI, No blurred vision, No double vision, No eye pain, No loss of night vision, No problem reported Neurological: No see HPI, No dizzy, No passing out, No numbness/tingling, No seizures, No problem reported Endocrine: No see HPI, No excessive thirst, No too hot, No too cold, No tired/ sluggish, No problem reported Gastrointestinal: + abdominal pain, + nausea, + vomiting Cardiovascular: No see HPI, No heart murmur, No chest pain, No angina, No irregular heartbeat, No palpitations, No swelling ankles/feet, No problem reported Respiratory: No see HPI, No shortness of breath, No wheezing, No coughing up blood, No chronic cough, No problem reported Skin: No see HPI, No rash, No boils, No dry skin, No problem reported Musculoskeletal: No see HPI, No joint pain, No neck pain, No back pain, No arthritis, No problem reported Blood / Lymphatic: No see HPI, No bleed easily, No bruise easily, No swollen glands, No problem reported Ears / Nose / Throat: No see HPI, No hearing loss, No sinus, No hoarse voice, No sore throat, No problem reported Psychologic / Mental: No see HPI, No nervous, No trouble remembering, No difficulty sleeping, No problem reported Male : + kidney stones All Other Systems: Reviewed and Negative Physical Exam Vital Signs: Vital Signs Past 12 Hours Date Time Temp Pulse Resp B/P (MAP) Pulse Ox O2 Delivery O2 Flow Rate FiO2 10/08/17 15:36 37.5 77 17 130/74 (92) 96 Room Air 10/08/17 12:00 Room Air 10/08/17 12:00 36.5 63 18 134/80 (98) 96 Room Air 10/08/17 11:43 66 18 121/71 96 Room Air 10/08/17 11:16 95 Room Air 10/08/17 10:23 69 20 119/76 95 10/08/17 09:37 72 20 121/77 100 Room Air 10/08/17 08:24 36.6 76 20 151/96 99 Room Air Physical Exam: General Appearance: no apparent distress Eyes: bilateral eyes normal inspection ENT: hearing grossly normal Neck: supple, no adenopathy Respiratory/Chest: no respiratory distress, no accessory muscle use Cardiovascular: regular rate, rhythm, no edema Gastrointestinal: Abdomen: normal abdomen Bladder: normal bladder Renal: normal renal Extremities: non-tender, no calf tenderness Neurologic/Psychiatric: alert, normal mood/affect, oriented x 3 Skin: warm/dry Lymphatic: no adenopathy Assessment & Plan Assessment & Plan Left ureteral stone (4mm) - symptoms currently controlled - discussed cysto stent vs URS/LL vs trial of passage vs ESWL - he would like to avoid any emergent surgery if at all possible - assuming his pain stays well controlled - and we can visualize the stone on KUB (w/o the gas filled colon), he would ideally like to be set up for ESWL later this week - ok to eat now, but NPO after MN just in case - KUB in the AM
[2017-10-08] MEDS: ONDANSETRON INJ 2 MG/ML 2 ML VIAL IV PRN (17:35)
[2017-10-08 23:36] VITALS: BP 136/77; PULSE 84; TEMP 37.7; O2SAT 93
[2017-10-09] MEDS: SODIUM CHLORIDE 0.9% 1000ML 1,000 ML IV SCH ×4 (00:55→19:56)
[2017-10-09] MEDS: ONDANSETRON INJ 2 MG/ML 2 ML VIAL IV PRN ×3 (07:08→23:29)
[2017-10-09 07:15] VITALS: BP 156/78; PULSE 90; TEMP 37.1; O2SAT 98
[2017-10-09] MEDS ORDERED: NURSING VERBAL MED ORDER ONE (07:30)
[2017-10-09] MEDS ORDERED: MoRPHine SULFATE 4 MG/ML 1 ML CARP\\VIAL IV PRN (07:30)
[2017-10-09] MEDS ORDERED: MoRPHine SULFATE 2 MG/ML CARP IV ONE (07:30)
[2017-10-09] MEDS: KETOROLAC TROMETHAMINE 15 MG/ML VIAL IV PRN ×3 (07:39→22:52)
--- NOTE | 2017-10-09 08:31 | DIAGNOSTIC IMAGING REPORT ---
KUB CLINICAL HISTORY: stone COMPARISON STUDY: 10/08/2017 FINDINGS: There is no pathologic bowel dilatation. The renal shadows are partially obscured overlying bowel gas and fecal material. There are no calcifications suspicious for renal calculi. A 5 mm radiopacity projected over the left hemisacrum is felt to represent a bone island as was visualized on a prior September 2017 CT scan. There is a nonspecific 2 mm left pelvic basin calcification. IMPRESSION: 1. No evidence of pathologic bowel dilatation 2. No renal calculi identified 3. Nonspecific 2 mm left pelvic basin calcification Electronically signed by: Johnathan Stringer M.D. 10/09/2017 8:30 AM Dictated Date/Time: 10/09/2017 8:20 AM
[2017-10-09 09:00] VITALS: O2SAT 98
[2017-10-09] MEDS ORDERED: TAMSULOSIN HCL 0.4 MG CAP PO SCH (09:00)
[2017-10-09] MEDS ORDERED: CEROVITE ADV FORMULA TAB PO SCH (09:00)
[2017-10-09] MEDS: ONDANSETRON 4MG OD TAB SL SCH ×3 (09:00→21:00)
[2017-10-09] MEDS ORDERED: HYDROCODONE/ACETAMIN 5/325MG TAB PO PRN (10:00)
--- NOTE | 2017-10-09 10:51 | Urology Progress Note ---
Progress Note Date of Service Oct 09, 2017. Subjective Pt evaluation today including: conversation w/ patient, physical exam, chart review, lab review, review of studies Pain: controlled with meds at time of exam - reports severe pain this morning PO Intake: tolerating, eating and drinking this AM despite NPO order Voiding: no voiding problems 47 YO male, small left ureteral stone. Patient is drinking Gatorade at time of exam. Patient reports that his pain had been well controlled until severe pain episode this morning. Repeat KUB this morning does not provide good visualization. Questionable stone measuring 2mm in L ureter. Renal US showing questionable ureterocele. AM labs still pending. Patient denies nausea/vomiting, states that he is feeling less feverish. Constitutional: No chills Eyes: No worsening of vision Respiratory: No shortness of breath Cardiovascular: No chest pain Abdomen: + pain, No nausea, No vomiting Male : + see HPI Neurologic: No numbness/tingling Psychiatric: No problem reported Objective Vital Signs Date Time Temp Pulse Resp B/P (MAP) Pulse Ox O2 Delivery O2 Flow Rate FiO2 10/09/17 09:00 98 Room Air 10/09/17 07:25 Room Air 10/09/17 07:15 37.1 90 29 156/78 (104) 98 Room Air 10/08/17 23:36 37.7 84 18 136/77 (96) 93 Room Air 10/08/17 23:15 Room Air 10/08/17 15:36 37.5 77 17 130/74 (92) 96 Room Air 10/08/17 15:35 96 Room Air 10/08/17 12:00 Room Air 10/08/17 12:00 36.5 63 18 134/80 (98) 96 Room Air 10/08/17 11:43 66 18 121/71 96 Room Air 10/08/17 11:16 95 Room Air Physical Exam General Appearance: no apparent distress Eyes: normal inspection ENT: hearing grossly normal Neck: supple, no JVD Respiratory/Chest: no respiratory distress, no accessory muscle use Cardiovascular: no edema, no JVD Abdomen: soft, + tenderness Extremities: normal inspection Neurologic/Psychiatric: alert, normal mood/affect, oriented x 3 Skin: normal color, warm/dry Laboratory Results Last 24 Hours Test 10/09/17 10:25 Assessment and Plan 47 YO male, small left ureteral stone. Questionable 2mm stone seen in L distal ureter on KUB. Patient drinking Gatorade at time of exam this morning despite NPO order, therefore I provided a diet today. Continue pain management, will continue to monitor. Given questionable ureterocele on Renal US will check IVP today, will also clarify stone visibility on XR. Can potentially manage as outpatient if pain remains under control. Otherwise, NPO at midnight in the event that surgical intervention is required tomorrow AM.
[2017-10-09 11:10] LABS: CALCIUM 8.2 mg/dl (8.5-10.1); CREATININE 1.21 mg/dl (0.60-1.40); POTASSIUM 3.7 mmol/L (3.5-5.1)
[2017-10-09] MEDS: MoRPHine SULFATE 2 MG/ML CARP IV PRN ×2 (11:47→12:14)
[2017-10-09] MEDS ORDERED: OPTIRAY 300 IV PRN (14:45)
[2017-10-09 15:35] VITALS: O2SAT 97
--- NOTE | 2017-10-09 15:42 | DIAGNOSTIC IMAGING REPORT ---
IV PYELOGRAM CLINICAL HISTORY: Left-sided nephrolithiasis. Question ureterocele. COMPARISON STUDY: Abdominal CT dated 10/06/2017. Abdominal radiographs dated 10/09/2017 and 10/08/2017. Renal ultrasound dated 10/08/2017. TECHNIQUE: An abdominal ad taker radiograph is performed. IVP pyelogram was then performed following the IV administration of 100 cc of Optiray 300, tomographic images are acquired in the corticomedullary and excretory phases of enhancement. Overhead views of the renal collecting system and bladder were obtained in multiple obliquities both pre and post void. FINDINGS: Abdominal ad taker radiograph shows a nonobstructed abdominal bowel gas pattern. No calcifications project over either kidney. A bone island projects over the left sacrum. A 4 mm calcification projecting over the left vesicoureteral junction may represent a distal ureteral stone. The bony structures appear intact. Following contrast menstruation the kidneys enhance symmetrically. There is slightly delayed excretion from left kidney. There is only mild fullness of the left renal collecting system without evidence of hydronephrosis. The ureters are normal in caliber. No filling defects identified renal collecting system or along the ureters bilaterally to suggest urothelial lesion. There is a paintbrush appearance of the right renal collecting system. This is nonspecific but can be seen in the setting of medullary sponge kidney. The bladder is normal as visualized. The ureterocele questioned by ultrasound was not apparent. There was no significant post void residual. IMPRESSION: 1. A 4 mm calcification projecting over the left vesicoureteral junction may represent a distal ureteral stone as no phleboliths were seen at this site by CT. 2. The kidneys enhance symmetrically. There is minimally delayed excretion from the left kidney. 3. There is mild fullness of the left renal collecting system without clear hydronephrosis. 4. There is a paintbrush appearance of the right renal collecting system, which is nonspecific but has been described in the setting of medullary sponge kidney. 5. The bladder was normal as visualized. The ureterocele questioned ultrasound was not apparent on today's examination. Electronically signed by: Denis Stevens M.D. 10/09/2017 3:41 PM Dictated Date/Time: 10/09/2017 3:29 PM
[2017-10-09 15:55] VITALS: BP 150/84; PULSE 58; TEMP 37; O2SAT 97
--- NOTE | 2017-10-09 16:04 | Hospitalist Progress Note ---
Hospitalist Progress Note Date of Service Oct 09, 2017. (Renay Saeed CRNP) Subjective Pt evaluation today including: conversation w/ patient, physical exam, chart review, lab review, review of inpatient medication list Voiding: no voiding problems Mr. Martinez continues to have pain intermittent excruciating pain. Most of the time he is comfortable but the pain episodes hit him very fast. ROS Constitutional: no chills, aches, sweats or fever Respiratory: no sob,cough, sputum, or wheezing Cardiac: no chest pain, palpitations, edema, orthopnea or lightheadedness GI: no abdominal pain, nausea, vomiting, diarrhea or constipation : no dysuria or hesitancy Extremities: no joint pain or weakness Skin: no rash All other systems reviewed and negative (Renay Saeed CRNP) Medications Medications Administered Medications (Trade) Dose Ordered Sig/Noam Route Start Time Stop Time Status Last Admin Dose Admin Sodium Chloride 1,000 ml @ 999 mls/hr Q1H1M STAT IV 10/08/17 08:33 10/08/17 09:33 DC 10/08/17 08:47 999 MLS/HR Ketorolac Tromethamine (Toradol Inj) 30 mg NOW STAT IV 10/08/17 08:33 10/08/17 08:36 DC 10/08/17 08:45 30 MG Morphine Sulfate (MoRPHine SULFATE INJ) 4 mg NOW STAT IV 10/08/17 08:33 10/08/17 08:36 DC 10/08/17 08:45 4 MG Metoclopramide HCl (Reglan Inj) 10 mg NOW STAT IV 10/08/17 08:48 10/08/17 08:49 DC 10/08/17 08:56 10 MG Ondansetron HCl (Zofran Inj) 4 mg Q6H PRN IV 10/08/17 11:30 11/07/17 11:29 10/09/17 13:37 4 MG Multivitamins/ Minerals (Multivitamin W/ Minerals Tab) 1 tab DAILY PO 10/09/17 09:00 11/08/17 08:59 10/09/17 08:58 1 TAB Ondansetron HCl (Zofran Odt) 4 mg TID SL 10/08/17 14:00 11/07/17 13:59 10/08/17 21:09 4 MG Tamsulosin HCl (Flomax Cap) 0.4 mg DAILY PO 10/09/17 09:00 11/08/17 08:59 10/09/17 08:58 0.4 MG Morphine Sulfate (MoRPHine SULFATE INJ) 1 mg Q4H PRN IV 10/08/17 11:30 10/09/17 07:29 DC 10/09/17 07:07 1 MG Sodium Chloride 1,000 ml @ 150 mls/hr Q6H40M IV 10/08/17 11:30 11/07/17 11:29 10/09/17 15:40 150 MLS/HR Morphine Sulfate (MoRPHine SULFATE INJ) 2 mg NOW ONCE IV 10/09/17 07:30 10/09/17 07:31 DC 10/09/17 07:24 2 MG Morphine Sulfate (MoRPHine SULFATE INJ) 2 mg Q4H PRN IV 10/09/17 07:30 10/23/17 07:29 10/09/17 12:14 2 MG Ketorolac Tromethamine (Toradol Inj) 15 mg Q6H PRN IV 10/09/17 07:30 10/14/17 07:29 10/09/17 13:34 15 MG (Renay Saeed CRNP) Objective Vital Signs Date Time Temp Pulse Resp B/P (MAP) Pulse Ox O2 Delivery O2 Flow Rate FiO2 10/09/17 09:00 98 Room Air 10/09/17 07:25 Room Air 10/09/17 07:15 37.1 90 29 156/78 (104) 98 Room Air 10/08/17 23:36 37.7 84 18 136/77 (96) 93 Room Air 10/08/17 23:15 Room Air (Renay Saeed CRNP) Physical Exam Notes: General: no distress Eyes: normal inspection, PERLL Respiratory: chest non tender, clear to auscultation, normal breath sounds, no respiratory distress, no accessory muscle use Cardiac: regular rate and rhythm, no rub or gallop, no murmur, no edema, no jvd GI/: active bowel sounds, no abd pain or tenderness, soft, non distended Extremities: normal range of motion, normal strength, non tender Neuro/Psych: alert and oriented x 3, normal mood and affect Skin: normal color, dry (Renay Saeed CRNP) Laboratory Results Last 24 Hours Test 10/09/17 10:25 Sodium Level 142 mmol/L Potassium Level 3.7 mmol/L Chloride Level 110 mmol/L Carbon Dioxide Level 27 mmol/L Anion Gap 5.0 mmol/L Blood Urea Nitrogen 13 mg/dl Creatinine 1.21 mg/dl Est Creatinine Clear Calc Drug Dose 82.0 ml/min Estimated GFR () 81.6 Estimated GFR (Non- 70.4 BUN/Creatinine Ratio 10.5 Random Glucose 108 mg/dl Calcium Level 8.2 mg/dl (Renay Saeed CRNP) Assessment and Plan 47 y/o M who was admitted on 10/08 with renal stone Renal stone: - concern for obstruction noted on retro US despite stone not being visualized, persistent mild left-sided hydronephrosis - Seen on CTA on 10/06 - IVP imaging today showing left distal ureteral stone 4mm - Continue IVF, Flomax, morphine, Toradol, Vicodin - urology on board - patient trying to avoid surgery at this point JONO - resolved, creatinine peaked at 1.85, 1.21 today Other: Full code NPO SCDs for DVT proph (Renay Saeed CRNP) ASSOCIATE PROFESSOR OF CHEMISTRY Physician Supervision Note: I discussed with Renay Saeed ASSOCIATE PROFESSOR OF CHEMISTRY and agree with findings and plan as documented in the note. Any exceptions or clarifications are listed here: None Documented By: John Marte (John Marte M.D.)
[2017-10-09 22:44] VITALS: BP 160/88; PULSE 64; TEMP 36.8; O2SAT 96
[2017-10-10] MEDS: SODIUM CHLORIDE 0.9% 1000ML 1,000 ML IV SCH ×2 (02:25→08:33)
[2017-10-10] MEDS: ONDANSETRON INJ 2 MG/ML 2 ML VIAL IV PRN (06:16)
[2017-10-10 07:28] VITALS: BP 162/91; PULSE 63; TEMP 36.3; O2SAT 98
[2017-10-10] MEDS ORDERED: METOCLOPRAMIDE HCL INJ 5 MG/ML 2 ML VIAL IV. STA (07:56)
[2017-10-10 08:12] VITALS: O2SAT 98
[2017-10-10] MEDS: ONDANSETRON 4MG OD TAB SL SCH (09:00)
--- NOTE | 2017-10-10 09:39 | Urology Progress Note ---
Progress Note Date of Service Oct 10, 2017. Subjective Pt evaluation today including: conversation w/ patient, conversation w/ family , physical exam, chart review, lab review Pain: denies PO Intake: NPO at time of exam Voiding: no voiding problems 47 YO male, small left ureteral stone. KUB yesterday with okay stone visualization, stone position confirmed with IVP. Ureterocele ruled out with IVP. Patient states that his pain is under better control. Occasional nausea, well controlled with Zofran. No voiding difficulty. Denies fever/chills. Constitutional: No fever, No chills Eyes: No worsening of vision Respiratory: No shortness of breath Cardiovascular: No chest pain Abdomen: + pain, + nausea, No vomiting Male : + see HPI Neurologic: No numbness/tingling Psychiatric: No problem reported Skin: No problem reported Objective Vital Signs Date Time Temp Pulse Resp B/P (MAP) Pulse Ox O2 Delivery O2 Flow Rate FiO2 10/10/17 08:12 98 Room Air 10/10/17 07:28 36.3 63 20 162/91 (114) 98 Room Air 10/09/17 23:30 Room Air 10/09/17 22:44 36.8 64 20 160/88 (112) 96 10/09/17 15:55 37.0 58 18 150/84 (106) 97 10/09/17 15:35 97 Room Air Physical Exam General Appearance: no apparent distress Eyes: normal inspection ENT: hearing grossly normal Neck: no JVD Respiratory/Chest: no respiratory distress, no accessory muscle use Cardiovascular: no JVD Abdomen: soft Extremities: normal inspection Neurologic/Psychiatric: alert, normal mood/affect, oriented x 3 Skin: normal color Laboratory Results Last 24 Hours Test 10/09/17 10:25 Sodium Level 142 mmol/L Potassium Level 3.7 mmol/L Chloride Level 110 mmol/L Carbon Dioxide Level 27 mmol/L Anion Gap 5.0 mmol/L Blood Urea Nitrogen 13 mg/dl Creatinine 1.21 mg/dl Est Creatinine Clear Calc Drug Dose 82.0 ml/min Estimated GFR () 81.6 Estimated GFR (Non- 70.4 BUN/Creatinine Ratio 10.5 Random Glucose 108 mg/dl Calcium Level 8.2 mg/dl Assessment and Plan 47 YO male, small left ureteral stone. Interventions discussed including symptom management/observation vs. ureteroscopy/laser litho vs. ESWL. Decent visualization of stone on XR. Patient wishes to proceed with ESWL tomorrow, risks and benefits reviewed including anesthesia risk and potential for repeat procedure if stone persists. Will check CXR and EKG for preop this morning while patient is still here. Recommend discharge home today with supportive medication including pain control , Flomax, and Zofran. Patient to report to outpatient urology office ([address]) this afternoon immediately following discharge to complete ESWL paperwork. Thank you for allowing us to participate in this patient's care. Recall PRN issues. Discharge planning: home
[2017-10-10] MEDS ORDERED: HYDR-5688 PO (10:53)
--- NOTE | 2017-10-10 11:05 | Discharge Instructions ---
Discharge Instructions Date of Service Oct 10, 2017. Admission Reason for Admission: Kidney Stone Discharge Discharge Diagnosis / Problem: kidney stone Discharge Goals Goal(s): Improve disease control Activity Recommendations Activity Limitations: per Instructions/Follow-up section Exercise/Sports Limitations: rest today . Instructions / Follow-Up Instructions / Follow-Up Please report to outpatient urology office ([address]) this afternoon immediately following discharge to complete paperwork. Follow their instructions for lithotripsy tomorrow. You should continue your tamsulosin I have prescribed you hydrocodone/acetaminophen for pain control for home. You can take 1-2 tabs every 4 hours as needed however you will need to be careful not to exceed 3000 mg of acetaminophen in a 24 hour period as you risk liver toxicity with doses higher than this. Current Hospital Diet Patient's current hospital diet: Regular Diet Discharge Diet Recommended Diet: Regular Diet Procedures Procedures Performed: Abdominal Xray Retroperitoneal ultrasound Pending Studies Studies pending at discharge: no Medical Emergencies . Who to Call and When: Medical Emergencies: If at any time you feel your situation is an emergency, please call 911 immediately. . Non-Emergent Contact Non-Emergency issues call your: Primary Care Provider, Urologist Call Non-Emergent contact if: you have a fever, your pain is not controlled, you have any medication questions . . "Provider Documentation" section prepared by Renay Saeed. .
--- NOTE | 2017-10-10 11:12 | DIAGNOSTIC IMAGING REPORT ---
TWO VIEW CHEST CLINICAL HISTORY: Preoperative examination. Nephrolithiasis. FINDINGS: PA and lateral chest radiographs are obtained. Correlation is made with abdominal CT dated 10/06/2017. The cardiomediastinal silhouette is unremarkable. There is mild nonspecific interstitial thickening. No airspace consolidation or pleural effusion is identified. Blunting of the costophrenic sulci seen on the lateral view corresponds to fat-containing [place] hernias when correlated with the 10/06/[address] There is no pneumothorax. The bony thorax appears intact. IMPRESSION: No active disease in the chest. Electronically signed by: Denis Stevens M.D. 10/10/2017 11:10 AM Dictated Date/Time: 10/10/2017 11:09 AM
--- NOTE | 2017-10-10 11:26 | Discharge Summary ---
Discharge Summary Date of Service Oct 10, 2017. Discharge Summary Admission Date: Oct 08, 2017 at 11:21 Discharge Date: Oct 10, 2017 Discharge Disposition: Home Principal Diagnosis: renal calculus Problems/Secondary Diagnoses: JONO Procedures: JOVAN/BLAD)RETROPERITON COMP IMPRESSION: 1. Persistent left-sided hydronephrosis with left ureteral jet not identified. These findings are suspicious for ongoing obstruction secondary to the previously described left ureteral calculus seen on recent CT study. 2. 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 within the region of the left ureterovesicular junction. Electronically signed by: Nitin Cole M.D. 10/08/2017 10:23 AM IV PYELOGRAM IMPRESSION: 1. A 4 mm calcification projecting over the left vesicoureteral junction may represent a distal ureteral stone as no phleboliths were seen at this site by CT. 2. The kidneys enhance symmetrically. There is minimally delayed excretion from the left kidney. 3. There is mild fullness of the left renal collecting system without clear hydronephrosis. 4. There is a paintbrush appearance of the right renal collecting system, which is nonspecific but has been described in the setting of medullary sponge kidney. 5. The bladder was normal as visualized. The ureterocele questioned ultrasound was not apparent on today's examination. Electronically signed by: Denis Stevnes M.D. 10/09/2017 3:41 PM Medication Reconciliation New Medications: Hydrocodone/Acetaminophen 5MG/325MG ([place] 5MG/325MG) Tab 1-2 TAB PO Q4H PRN for Pain for 2 Days, #15 TAB Do not take more than 3000 mg acetaminophen in 24 hours Continued Medications: Multiple Vitamins W/ Minerals (Mens Multi Vitamin & Mine) 1 Tab Tab 1 TAB PO DAILY Ondasetron Odt (Zofran Odt) 4 Mg Tab 4 MG SL TID for Nausea, #30 TAB Tamsulosin Hcl (Flomax) 0.4 Mg Cap 0.4 MG PO DAILY, #10 CAP Discontinued Medications: Ibuprofen Tab (Motrin) 800 Mg Tab 800 MG PO Q8H PRN for Pain, #30 TAB Discharge Exam ROS Constitutional: no chills, aches, sweats or fever Respiratory: no sob,cough, sputum, or wheezing Cardiac: no chest pain, palpitations, edema, orthopnea or lightheadedness GI: no abdominal pain, nausea, vomiting, diarrhea or constipation : no dysuria or hesitancy Extremities: no joint pain or weakness Skin: no rash All other systems reviewed and negative PE General: no distress Eyes: normal inspection, PERLL Respiratory: chest non tender, clear to auscultation, normal breath sounds, no respiratory distress, no accessory muscle use Cardiac: regular rate and rhythm, no rub or gallop, no murmur, no edema, no jvd GI/: active bowel sounds, no abd pain or tenderness, soft, non distended Extremities: normal range of motion, normal strength, non tender Neuro/Psych: alert and oriented x 3, normal mood and affect Skin: normal color, dry Hospital Course 47 y/o M who was admitted on 10/08 with renal stone Renal stone: - concern for obstruction noted on retro US despite stone not being visualized, persistent mild left-sided hydronephrosis - Seen on CTA on 10/06 - IVP imaging yesterday showing left distal ureteral stone 4mm - urology on board - patient will discharge and have lithotripsy outpatient tomorrow. Will discharge with tamsulosin, hydrocodone/apap, and zofran JONO - resolved, creatinine peaked at 1.85 and resolved SERVICE DELIVERY MANAGER Physician Supervision Note: I discussed with Renay Saeed SERVICE DELIVERY MANAGER and agree with findings and plan as documented in the note. Any exceptions or clarifications are listed here: None Documented By: John Marte Total Time Spent: Greater than 30 minutes This includes examination of the patient, discharge planning, medication reconciliation, and communication with other providers. Discharge Instructions Please refer to the electronic Patient Visit Report (Discharge Instructions) for additional information. Follow-Up urology tomorrow Additional Copies To Fazal Hdez M.D.
[2017-10-10 11:36] VITALS: BP 162/91; PULSE 63; TEMP 36.3; O2SAT 98
[2017-10-11] MEDS ORDERED: OXYC-57 PO (12:50)
== END 2017-10-10 12:19 | disposition home or self-care (01) | DRG 694 ==
LOC: C.EDB 08:21 → C.MSW 11:21 → EDBEDREQ 11:29 → ENRESERV 11:37
PROVIDERS: ADMIT Family Medicine; ATTEND Nurse Practitioner Family
DX: N13.2 Hydronephrosis with renal and ureteral calculous obstruction (principal); N17.9 Acute kidney failure, unspecified; Z82.49 Family history of ischemic heart disease and other diseases of the circulatory system

== ENCOUNTER → 2017-10-10 | Outpatient (CLI) | payer OTHER ==
[~2017-10-10] MED LIST changes: +HYDR-5688 PO; +MULT-600 PO; +OXYC-57 PO
== END | disposition home or self-care (01) ==
LOC: C.LABSPEC 17:18
PROVIDERS: ATTEND Nurse Practitioner Family
DX: N20.0 Calculus of kidney (principal)

== ENCOUNTER → 2017-10-11 | Outpatient (CLI) | payer OTHER ==
--- NOTE | 2017-10-11 09:03 | DIAGNOSTIC IMAGING REPORT ---
KUB CLINICAL HISTORY: Nephrolithiasis. FINDINGS: 2 AP supine abdominal radiographs are compared to study dated 10/09/2017 and correlated with abdominal CT dated 10/06/2017. There is a nonobstructed abdominal bowel gas pattern. The small calculus projects over the left vesicoureteral junction seen on 10/09/2017 has resolved. There is no radiographic evidence of nephrolithiasis on today's examination. The lung bases are clear as imaged. The bony structures appear intact. IMPRESSION: 1. There is no radiographic evidence of nephrolithiasis on today's examination. 2. The calculus seen projecting over the left vesicoureteral junction on prior studies is no longer apparent. Electronically signed by: Denis Stevens M.D. 10/11/2017 9:02 AM Dictated Date/Time: 10/11/2017 9:00 AM
== END | disposition home or self-care (01) ==
LOC: C.RAD1850 08:24
PROVIDERS: ATTEND Nurse Practitioner Family
DX: N20.0 Calculus of kidney (principal)

== ENCOUNTER → 2017-10-11 | Day surgery (SDC) | payer OTHER ==
[2017-10-10 16:34] VITALS: Ht 182.9 cm; Wt 79.5 kg
[~2017-10-11] VITALS: Ht 182.9 cm; Wt 79.5 kg
[~2017-10-11] MED LIST changes: +ATROPINE SULFATE 0.1 MG/ML 5ML SYR IV PRN; +CIPROFLOXACIN / D5W 400 MG IV SCH; +EpHEDrine SULFATE INJ 50 MG/ML AMP IV PRN; +FENTANYL CITRATE INJ 50 MCG/1 ML 2 ML VIAL IV PRN; +FENTANYL CITRATE INJ 50 MCG/1 ML 2 ML VIAL ONE; +LACTATED RINGER'S 1000ML 1,000 ML IV SCH; +LIDOCAINE HCL 2% 2 ML VIAL (20MG/ML) ONE; +MIDAZOLAM HCL 1 MG/ML 2ML VIAL ONE; +ONDANSETRON INJ 2 MG/ML 2 ML VIAL IV PRN; +ONDANSETRON INJ 2 MG/ML 2 ML VIAL ONE; +OXYCODONE/ACETAMINOPHEN 5-325 TAB PO PRN; +PROPOFOL IV EMULSION 10 MG/ML 20 ML VIAL ONE; +ROCURONIUM BROMIDE 10 MG/ML 5 ML VIAL ONE; +SCOPOLAMINE 1.5 MG TDSY TD ONE
--- NOTE | 2017-10-11 12:04 | History & Physical Bridge Note ---
H&P Re-Evaluation Bridge Note: I have examined the patient, reviewed the History & Physical and in the interval since the performance of the History & Physical I have noted the following changes of clinical significance: No changes noted
--- NOTE | 2017-10-11 12:51 | Discharge Instructions-SurgCtr ---
Discharge Instructions Date of Service Oct 11, 2017. Visit Reason for Visit: STONE Discharge Discharge Diagnosis / Problem: stone Discharge Goals Goal(s): Therapeutic intervention Activity Recommendations Activity Limitations: per Instructions/Follow-up section Exercise/Sports Limitations: rest today May Resume Sexual Activity: when tolerated Shower/Bathe: no limitations Driving or Machine Use: resume 1 day after discharge MEDICATIONS: Resume previous medications unless instructed otherwise by your surgeon. Resume pre-ES[facility] medication except for aspirin, coumadin or other blood thinners. __ Toradol 10 mg every 6 hours for initial pain. __ Lortab 5 mg 1-2 every 4 hours for pain. _x_ Percocet 5 mg 1-2 every 4 hours for pain. __ Macrodantin 50 mg x 3 a day. __ Flomax 1 tab daily one half (1/2) hour after supper. SPECIAL CARE INSTRUCTIONS: 1. Get KUB (x-ray) _x_ day before or day of office visit and bring x-ray to office __ get x-ray 2 days before and tell office you are getting x-rays when you call for the appointment. 2. Strain ALL urine. 3. Please call if you have a fever, chills, severe pain, or constant dribbling of urine. 4. Office phone number . FOLLOW UP VISIT: Please call the office to schedule a follow-up appointment at . Anesthesia . Post Anesthesia Instructions: If you have had General Anesthesia or IV Sedation: * Do not drive today. * Resume driving when surgeon permits. * Do not make important decisions or sign legal documents today. * Call surgeon for: 1. Temperature elevations greater than 101 degrees F. 2. Uncontrollable pain. 3. Excessive bleeding. 4. Persistent nausea and vomiting. 5. Medication intolerance (nausea, vomiting or rash). * For nausea and vomiting use only clear liquids such as: tea, soda, bouillon until nausea subsides, then gradually increase diet as tolerated. * If you have any concerns or questions, call your surgeon's office. If physician is unavailable and it is an emergency, call 911 or go to the nearest emergency room. . Diet Recommendations Home Diet: resume previous diet Pending Studies Studies pending at discharge: no Medical Emergencies . Who to Call and When: Medical Emergencies: If at any time you feel your situation is an emergency, please call 911 immediately. . Non-Emergent Contact Non-Emergency issues call your: Urologist Call Non-Emergent contact if: temperature is above 101.5, your pain is not controlled . . "Provider Documentation" section prepared by Sarath De Leon. . [place] Drug Monitoring Program Search Results: patient reviewed within database
--- NOTE | 2017-10-11 12:53 | [facility] Operative Report ---
Operative Report Operative Date Oct 11, 2017. Pre-Operative Diagnosis LEFT URETERAL STONE Post-Operative Diagnosis SAME Procedure(s) Performed LEFT ESWL Surgeon LOYD Barrel Handler Surgeon(s) NONE Estimated Blood Loss NONE Findings LEFT URETERAL STONE Specimens NONE Drains None Anesthesia Type MAC Complication(s) none Disposition yes Recovery Room / PACU Indications LEFT URETERAL STONE Description of Procedure Patient was identified in the preoperative holding area, appropriate informed consent was reviewed and completed and the patient was transported to the operating suite. Upon arrival appropriate preoperative antibiotics were administered and general anesthesia induced. The patient was placed in supine position and the stone was localized under fluoroscopy. A total of [_3000__] shocks were delivered to the stone. There appeared to be good fragmentation of the stone. Details of this procedure can be found on the [facility] information sheet. At the conclusion of the case the patient was extubated and taken to the PACU in stable condition. There were no complications. I attest to the content of the Intraoperative Record and any orders documented therein. Any exceptions are noted below.
[2017-10-11 13:53] VITALS: TEMP 37.1
[2017-10-11 14:15] VITALS: BP 160/95; PULSE 50; O2SAT 98
--- NOTE | 2017-10-11 14:18 | Anesthesia Progress Nt - [facility] ---
Anesthesia Post Op Note Date & Time Oct 11, 2017 at 14:18 Vital Signs Pain Intensity: 0 Vital Signs Past 12 Hours Date Time Temp Pulse Resp B/P (MAP) Pulse Ox O2 Delivery O2 Flow Rate FiO2 10/11/17 14:15 50 16 160/95 (116) 98 Room Air 10/11/17 13:53 37.1 62 16 152/97 (115) 95 Room Air 10/11/17 13:46 58 20 94 10/11/17 13:46 58 20 10/11/17 13:45 153/104 10/11/17 13:44 36.9 94 Room Air 10/11/17 13:41 62 18 98 10/11/17 13:41 59 18 10/11/17 13:40 143/99 10/11/17 13:36 56 20 10/11/17 13:36 57 20 98 10/11/17 13:35 150/98 10/11/17 13:31 60 16 99 10/11/17 13:31 60 16 10/11/17 13:30 138/91 10/11/17 13:26 68 20 98 10/11/17 13:26 68 20 10/11/17 13:25 147/91 10/11/17 13:21 138/84 10/11/17 13:21 37.2 68 18 138/84 98 Mask 8 10/11/17 09:24 36.7 55 18 169/98 (121) 97 Room Air Notes Mental Status: alert / awake / arousable, participated in evaluation Pt Amnestic to Procedure: Yes Nausea / Vomiting: adequately controlled Pain: adequately controlled Airway Patency, RR, SpO2: stable & adequate BP & HR: stable & adequate Hydration State: stable & adequate Anesthetic Complications: no major complications apparent
== END | disposition home or self-care (01) ==
LOC: X.SURG 08:44
PROVIDERS: ATTEND Urology
DX: N20.1 Calculus of ureter (principal)

== ENCOUNTER 2017-10-14 17:02 | Emergency (ER) | payer OTHER ==
[~2017-10-14] VITALS: Ht 182.9 cm; Wt 77.9 kg
[~2017-10-14 17:02] MED LIST changes: -ATROPINE SULFATE 0.1 MG/ML 5ML SYR IV PRN; -CIPROFLOXACIN / D5W 400 MG IV SCH; -EpHEDrine SULFATE INJ 50 MG/ML AMP IV PRN; -FENTANYL CITRATE INJ 50 MCG/1 ML 2 ML VIAL IV PRN; -FENTANYL CITRATE INJ 50 MCG/1 ML 2 ML VIAL ONE; -IBUP-1451 PO; -LACTATED RINGER'S 1000ML 1,000 ML IV SCH; -LIDOCAINE HCL 2% 2 ML VIAL (20MG/ML) ONE; -MIDAZOLAM HCL 1 MG/ML 2ML VIAL ONE; -MULT-600 PO; -ONDANSETRON INJ 2 MG/ML 2 ML VIAL IV PRN; -ONDANSETRON INJ 2 MG/ML 2 ML VIAL ONE; -OXYCODONE/ACETAMINOPHEN 5-325 TAB PO PRN; -PROPOFOL IV EMULSION 10 MG/ML 20 ML VIAL ONE; -ROCURONIUM BROMIDE 10 MG/ML 5 ML VIAL ONE; -SCOPOLAMINE 1.5 MG TDSY TD ONE
[2017-10-14] MEDS ORDERED: MULT-600 PO (17:10)
[2017-10-14 17:15] VITALS: TEMP 37.1; Ht 182.9 cm; Wt 77.9 kg
--- NOTE | 2017-10-14 17:35 | EMERGENCY ROOM VISIT NOTE ---
History Report prepared by Shaina: Haydee Ley Under the Supervision of: Dr. Emir Mills M.D. First contact with patient: 17:19 Chief Complaint: REFERRED BY DOCTOR Stated Complaint: CALF PAIN,NAUSEA,KIDNEY PAIN History of Present Illness The patient is a 47 year old male who presents to the Emergency Room with complaints of intermittent bilateral calf pains beginning 4 days ago. He notes he was referred to the ED after a follow-up appointment with Dr. De Leon following a kidney stone lithotripsy treatment performed 4 days ago. The patient reports he was diagnosed with a 4 mm left kidney stone 8 days ago, and 6 days ago he was was admitted to the hospital for 2 nights. He reports he was discharged as he wanted the lithotripsy treatment, which is an outpatient procedure. He notes he his still experiencing episodes of kidney pain following his treatment, but it is not as severe as before. The patient states his calf pain comes and goes, and can be in either calf or both at the same time. He reports this pain dissipates when walking. The patient notes Dr. De Leon was concerned for DVT. He denies a personal or family history of blood clots. The patient notes he experienced intermittent nausea today, which was slightly relieved by Zofran. He states he has not had a bowel movement for over a week, but notes he has not been eating much and does not feel as though he has to have a bowel movement. The patient denies fevers, chills, cough, or vomiting. Source of History: patient Onset: 4 days ago Position: other (bilateral calves) Quality: other (calf pain) Timing: intermittent Modifying Factors (Relieving): other (walking) Associated Symptoms: + nausea (intermittent), No fevers, No chills, No cough , No vomiting Note: Associated symptoms: episodes of kidney pain, no bowel movement for over a week. Review of Systems See HPI for pertinent positives and negatives. A total of ten systems were reviewed and were otherwise negative. Past Medical & Surgical Medical Problems: (1) Kidney stone Family History No pertinent family history stated. Social History Smoking Status: Never Smoker Drug Use: none Marital Status: Housing Status: lives with significant other Current/Historical Medications Scheduled Multiple Vitamins W/ Minerals (Mens Multi Vitamin & Mine), 1 TAB PO DAILY Ondasetron Odt (Zofran Odt), 4 MG SL TID Tamsulosin Hcl (Flomax), 0.4 MG PO DAILY Scheduled PRN Oxycodone/Acetaminophen 5MG/325MG (Percocet 5MG/325MG), 1-2 TABLETS PO Q4H PRN for Pain Allergies Coded Allergies: No Known Allergies (Unverified , 10/11/17) Physical Exam Vital Signs Date Time Temp Pulse Resp B/P (MAP) Pulse Ox O2 Delivery O2 Flow Rate FiO2 10/14/17 20:42 64 18 152/96 96 10/14/17 19:24 57 18 166/99 95 Room Air 10/14/17 19:11 55 18 163/98 98 Room Air 10/14/17 17:15 37.1 75 22 150/98 98 Room Air Physical Exam GENERAL: Awake, alert, well-appearing, in no distress HENT: Normocephalic, atraumatic. Oropharynx unremarkable. [Mucous membranes are dry.] EYES: Normal conjunctiva. Sclera non-icteric. NECK: Supple. No nuchal rigidity. FROM. No JVD. RESPIRATORY: Clear to auscultation. CARDIAC: Regular rate, normal rhythm. Extremities warm and well perfused. Pulses equal. ABDOMEN: Soft, non-distended. No tenderness to palpation. No rebound or guarding. No masses. RECTAL: Deferred. MUSCULOSKELETAL: Chest examination reveals no tenderness. The back is symmetrical on inspection without obvious abnormality. There is no CVA tenderness to palpation. No joint edema. LOWER EXTREMITIES: No edema. No discoloration. Mild L ankle edema, mild bilateral calf pain. NEURO: Normal sensorium. No sensory or motor deficits noted. SKIN: No rash or jaundice noted. Medical Decision & Procedures ER Provider Diagnostic Interpretation: Radiology results as stated below per my review and radiologist interpretation: BILATERAL LOWER EXTREMITY VENOUS DOPPLER CLINICAL HISTORY: Bilateral calf pain. COMPARISON STUDY: No previous studies for comparison. TECHNIQUE: Sonography of the deep venous system of the bilateral lower extremities was performed. Compression and augmentation were evaluated. FINDINGS: Note is made of occlusive thrombus within paired right gastrocnemius veins from the level of the midcalf to the popliteal fossa. This is considered deep venous thrombus. No additional sites of deep venous thrombus within the right lower extremity are noted. Note is made of deep venous thrombus within the left peroneal vein. No additional sites of deep venous thrombus are identified. There is slow flow within the left superficial femoral vein. IMPRESSION: Deep venous thrombus within the left peroneal and right gastrocnemius veins. Electronically signed by: Josiah Vera M.D. 10/14/2017 7:13 PM Dictated Date/Time: 10/14/2017 7:09 PM ED Course 1720: The patient was evaluated in room C9. A complete history and physical exam was performed. 1939: I reevaluated and updated the patient. 2029: I reevaluated the patient. Discussed results and discharge instructions: he verbalized understanding and agreement. The patient is ready for discharge. Medical Decision I reviewed the patient's past medical history, medications, and the nursing notes as described above. Differential diagnosis: Etiologies such as DVT, musculoskeletal, infection, joint effusion, trauma, lymphedema, idiopathic, CHF, as well as others were entertained. The patient is a 47-year-old gentleman with a past medical history of recent lithotripsy for obstructing urinary stone on now presents emergency department with intermittent bilateral calf pain sent to the ED for rule out for DVT per hpi. On arrival patient is well-appearing in no acute distress, afebrile stable vital signs. On exam the patient is mild tenderness to bilateral calves with mild swelling of the left ankle. Distal PMS intact. BLE duplex demonstrates right peroneal and left gastronemius DVTs. Findings and treatment options regarding distal DVTs d/w patient and given that his provocation (his recent hospitalization and immobility form his kidney stone) has resolved he prefers to proceed with no anticoagulation and serial ultrasounds at this time. He will f/u with his pcp to discuss this further and schedule a repeat US. Findings and plan for follow-up reviewed with patient. Patient agreeable and d/c'd per discharge instructions. Medication Reconcilliation Current Medication List: was personally reviewed by me Blood Pressure Screening Patient's blood pressure: Elevated blood pressure Blood pressure disposition: Elevated BP felt to be situational Impression Primary Impression: Deep venous thrombosis of left peroneal vein Additional Impression: Deep venous thrombosis of calf Scribe Attestation The scribe's documentation has been prepared under my direction and personally reviewed by me in its entirety. I confirm that the note above accurately reflects all work, treatment, procedures, and medical decision making performed by me. Departure Information Dispostion Home / Self-Care Referrals Fazal Hdez M.D. (PCP) Forms HOME CARE DOCUMENTATION FORM, IMPORTANT VISIT INFORMATION, WORK / SCHOOL INSTRUCTIONS Patient Instructions ED DVT, My [facility] Additional Instructions Please follow up with your primary care physician in the next 1-3 days for re- evaluation and to discuss need for/options for anticoagulation given that your blood clots were likely provoked by recent kidney stone/hospitalization with immobility and are located in your left peroneal vein and right gastronemius veins below your knee. The approach to the treatment of blood clots below your knee is variable. There is ample agreement that in patients who do not have concerning risk factors and have had the provocation for their below-knee (distal) DVT removed, anticoagulation may not be required so long as a repeat ultrasounds every two weeks are performed to ensure the DVT resolves and/or does not worsen. Return to the emergency department for worsening symptoms as described in the accompanying instructions, including worsening swelling, pain extending to your thighs, chest pain, or shortness of breath. Problem Qualifiers
[2017-10-14] MEDS ORDERED: TAMS0.4C38 PO (18:06)
--- NOTE | 2017-10-14 19:15 | DIAGNOSTIC IMAGING REPORT ---
BILATERAL LOWER EXTREMITY VENOUS DOPPLER CLINICAL HISTORY: Bilateral calf pain. COMPARISON STUDY: No previous studies for comparison. TECHNIQUE: Sonography of the deep venous system of the bilateral lower extremities was performed. Compression and augmentation were evaluated. FINDINGS: Note is made of occlusive thrombus within paired right gastrocnemius veins from the level of the midcalf to the popliteal fossa. This is considered deep venous thrombus. No additional sites of deep venous thrombus within the right lower extremity are noted. Note is made of deep venous thrombus within the left peroneal vein. No additional sites of deep venous thrombus are identified. There is slow flow within the left superficial femoral vein. IMPRESSION: Deep venous thrombus within the left peroneal and right gastrocnemius veins. Electronically signed by: Josiah Vera M.D. 10/14/2017 7:13 PM Dictated Date/Time: 10/14/2017 7:09 PM
[2017-10-14 20:42] VITALS: BP 152/96; PULSE 64; O2SAT 96
== END 2017-10-14 20:40 | disposition home or self-care (01) ==
LOC: C.EDB 17:05 → C.EDC 20:40
DX: I82.402 Acute embolism and thrombosis of unspecified deep veins of left lower extremity (principal); I82.4Z9 Acute embolism and thrombosis of unspecified deep veins of unspecified distal lower extremity

== ENCOUNTER → 2017-10-17 | Outpatient (CLI) | payer OTHER ==
[~2017-10-17] MED LIST changes: -HYDR-5688 PO; +MULT-600 PO
--- NOTE | 2017-10-17 16:01 | DIAGNOSTIC IMAGING REPORT ---
L VENOUS DOPP LOWER EXT UNILAT CLINICAL HISTORY: F/U BLOOD CLOT thrombophlebitis TECHNIQUE: Venous Doppler COMPARISON STUDY: 10/14/2017 FINDINGS: The right leg remains normal. No evidence for right-sided deep venous thrombosis. Left leg continues to show thrombus within the left peroneal veins. There appears to be no evidence for progression. IMPRESSION: 1. Acute deep venous thrombosis left leg. 2. No change from the prior study. 3. No evidence for progression. 4. The right leg remains normal. The above report was generated using voice recognition software. It may contain grammatical, syntax or spelling errors. Electronically signed by: Renato Anguiano M.D. 10/17/2017 4:00 PM Dictated Date/Time: 10/17/2017 3:58 PM
== END | disposition home or self-care (01) ==
LOC: C.ULTRBC 15:27
PROVIDERS: ATTEND Family Medicine
DX: I82.4Y2 Acute embolism and thrombosis of unspecified deep veins of left proximal lower extremity (principal)